=== PATIENT | female | born 1985 | race African-American/Black ===

== ENCOUNTER 2018-02-08 07:23 | Emergency (ER) | payer OTHER, MEDICAID ==
[~2018-02-08] VITALS: Ht 160 cm; Wt 60.0 kg
[~2018-02-08 07:23] MED LIST: CARB200T PO; RISP0.5T19 PO
[2018-02-08] MEDS ORDERED: LIDOCAINE HCL 1% 20ML VIAL (Pyxis) INJ INFIL ONE (08:30)
[2018-02-08] MEDS ORDERED: LIDOCAINE HCL/PF 1% 10 MG/ML 5ML VIAL INL NR (08:30)
[2018-02-08] MEDS ORDERED: TETANUS, DIPHTHERIA, PERTUSSIS VAC/PF 0.5ML (>7YR OLD) IM ONE (08:30)
[2018-02-08 10:30] VITALS: BP 99/65
== END 2018-02-08 10:45 | disposition home or self-care (01) ==
LOC: ER 07:23
DX: S01.01XA Laceration without foreign body of scalp, initial encounter (principal); J45.909 Unspecified asthma, uncomplicated; G80.9 Cerebral palsy, unspecified; W19.XXXA Unspecified fall, initial encounter; Y93.89 Activity, other specified; Y92.89 Other specified places as the place of occurrence of the external cause; Y99.8 Other external cause status
CPT/HCPCS: 12004; 90471; 90715; 99283; X7700; Z7610; J3490

== ENCOUNTER 2018-02-15 14:45 | Emergency (ER) | payer OTHER, MEDICAID ==
[~2018-02-15] VITALS: Ht 152.4 cm; Wt 59.0 kg
[2018-02-15] MEDS ORDERED: LEVETIRACETAM 500MG PREMIX 100 ML IV ONE (15:45)
[2018-02-15] MEDS ORDERED: LORAZEPAM 2MG/ML CPJ IV ONE (15:45)
[2018-02-15 16:09] LABS: BASOPHILS % 0.3 % (0.0-2.0); EOSINOPHILS % 0.6 % (0.0-5.0); HEMATOCRIT. 33.3 % (36.0-48.0); LYMPHOCYTES % 41.2 % (20.0-50.0); MEAN CORPUSCULAR HEMOGLOBIN 29.4 pg (28.0-32.0); MEAN CORPUSCULAR VOLUME 89.3 fL (81.0-99.0); MEAN PLATELET VOLUME 7.9 fl (7.4-10.4); MONOCYTES % 8.9 % (2.0-8.0); PLATELET 220 x1000/uL (130-400); RED BLOOD CELL COUNT 3.73 mill/uL (4.2-5.4); RED CELL DISTRIBUTION WIDTH 13.7 % (11.6-14.6)
[2018-02-15 16:12] LABS: CHLORIDE 113 mEq/L (98-107)
[2018-02-15 16:16] LABS: ETHANOL BLOOD < 10 mg/dL
[2018-02-15 16:21] LABS: CREATINE KINASE 58 IU/L (26-192)
[2018-02-15 16:28] LABS: PHENOBARBITAL < 2.1 ug/mL (15.0-40.0)
[2018-02-15 18:23] VITALS: BP 108/61
== END 2018-02-15 18:53 | disposition home or self-care (01) ==
LOC: ER 15:58
DX: S01.01XD Laceration without foreign body of scalp, subsequent encounter (principal); X58.XXXD Exposure to other specified factors, subsequent encounter; G40.909 Epilepsy, unspecified, not intractable, without status epilepticus; J45.909 Unspecified asthma, uncomplicated; E86.0 Dehydration; G80.9 Cerebral palsy, unspecified
CPT/HCPCS: 36415; 80053; 80156; 80165; 80184; 80185; 82550; 84443; 85025; 96365; 96375; 99284; G0482; J1953; J2060

== ENCOUNTER 2018-02-20 13:26 | Emergency (ER) | payer OTHER, MEDICAID ==
[~2018-02-20] VITALS: Ht 154.9 cm; Wt 56.0 kg
[2018-02-20 14:19] VITALS: BP 114/87
== END 2018-02-20 14:46 | disposition home or self-care (01) ==
LOC: ER 14:43
DX: Z48.02 Encounter for removal of sutures (principal)
CPT/HCPCS: 99281

== ENCOUNTER 2022-02-28 18:35 | Inpatient (IN) | payer OTHER, MEDICAID ==
[~2022-02-28] VITALS: Ht 154.9 cm; Wt 54.9 kg
[~2022-02-28 18:35] MED LIST changes: -RISP0.5T19 PO; +RISP0.5T65 PO
[2022-02-28] MEDS ORDERED: ACETAMINOPHEN 325MG TABLET PO STA (18:54)
[2022-02-28] MEDS ORDERED: CEFTRIAXONE 1 G PREMIX 50 ML IV ONE (19:00)
[2022-02-28] MEDS ORDERED: SODIUM CHLORIDE 0.9% 1000ML BAG (SEPSIS BOLUS) IV ONE (19:00)
[2022-02-28 19:50] LABS: BASOPHILS % 0.1 % (0.0-2.0); HEMATOCRIT. 33.3 % (36.0-48.0); HEMOGLOBIN. 11.5 g/dL (12.0-16.0); LYMPHOCYTES % 16.4 % (20.0-50.0); MEAN CORPUSCULAR HEMOGLOBIN 30.2 pg (28.0-32.0); MEAN CORPUSCULAR VOLUME 87.4 fL (81.0-99.0); MEAN PLATELET VOLUME 8.2 fl (7.4-10.4); MONOCYTES % 6.9 % (2.0-8.0); NEUTROPHILS % 76.6 % (40.0-76.0); PLATELET 147 x1000/uL (130-400); RED BLOOD CELL COUNT 3.81 mill/uL (4.2-5.4)
[2022-02-28 19:53] LABS: CHLORIDE 112 mEq/L (98-107)
[2022-02-28] MEDS ORDERED: ACETAMINOPHEN 325MG TABLET PO NR (20:00)
[2022-02-28 20:12] LABS: HCG SCREEN NEGATIVE
[2022-02-28 22:04] LABS: INR 1.2; PROTHROMBIN TIME 12.6 sec (9.6-11.0)
[2022-02-28 22:49] LABS: CLARITY URINE CLEAR (CLEAR); COLOR URINE YELLOW (YELLOW); KETONES URINE 3+ (NEGATIVE); LEUKOCYTE ESTERASE URINE NEGATIVE (NEGATIVE); NITRITE URINE NEGATIVE (NEGATIVE); OCCULT BLOOD URINE NEGATIVE (NEGATIVE); PROTEIN URINE 2+ (NEGATIVE); SPECIFIC GRAVITY URINE 1.028 (1.005-1.030); UROBILINOGEN URINE 0.2 E.U./dL (0.2-1.0)
[2022-02-28] MEDS ORDERED: DIVALPROEX SODIUM 250MG ER TABLET PO SCH ×2 (23:15→23:45)
[2022-02-28] MEDS ORDERED: CARBAMAZEPINE 200MG TABLET PO ONE (23:15)
[2022-03-01 00:29] VITALS: BP 124/62
[2022-03-01] MEDS ORDERED: POTASSIUM CHLORIDE 20MEQ TABLET SR PO ONE (01:15)
[2022-03-01 04:00] VITALS: BP 119/59
[2022-03-01] MEDS ORDERED: DEPSPR MT (04:01)
[2022-03-01] MEDS ORDERED: DOCUSATE SODIUM 100MG CAPSULE PO PRN (05:00)
[2022-03-01] MEDS ORDERED: NA PHOS,M-B/NA PHOS,DI-BA ENEMA 118ML PR PRN (05:00)
[2022-03-01] MEDS ORDERED: CLONIDINE 0.1MG TABLET PO PRN (05:00)
[2022-03-01] MEDS ORDERED: ACETAMINOPHEN 325MG TABLET PO PRN (05:00)
[2022-03-01] MEDS: DEXAMETHASONE 4MG/ML 1ML VIAL IV SCH ×2 (05:37→11:30)
[2022-03-01 06:51] LABS: BASOPHILS % 0.2 % (0.0-2.0); HEMATOCRIT. 32.9 % (36.0-48.0); HEMOGLOBIN. 11.1 g/dL (12.0-16.0); LYMPHOCYTES % 16.7 % (20.0-50.0); MEAN CORPUSCULAR HEMOGLOBIN 29.6 pg (28.0-32.0); MEAN CORPUSCULAR VOLUME 87.7 fL (81.0-99.0); MEAN PLATELET VOLUME 8.2 fl (7.4-10.4); MONOCYTES % 6.8 % (2.0-8.0); NEUTROPHILS % 76.3 % (40.0-76.0); PLATELET 120 x1000/uL (130-400); RED BLOOD CELL COUNT 3.75 mill/uL (4.2-5.4); RED CELL DISTRIBUTION WIDTH 13.1 % (11.6-14.6)
[2022-03-01 07:09] LABS: CHLORIDE 112 mEq/L (98-107)
[2022-03-01 08:00] VITALS: BP 125/67
[2022-03-01] MEDS ORDERED: DIVALPROEX SODIUM 250MG ER TABLET PO SCH (09:00)
[2022-03-01] MEDS ORDERED: POTASSIUM CHLORIDE 20MEQ TABLET SR PO NR (10:15)
[2022-03-01] MEDS: CARBAMAZEPINE 200MG TABLET PO SCH ×2 (10:26→10:28)
[2022-03-01] MEDS: RISPERIDONE 0.5MG TABLET PO SCH ×2 (10:27→17:30)
[2022-03-01] MEDS: ENOXAPARIN 40MG/0.4ML SYR SUBCUT SCH (10:28)
[2022-03-01 11:18] LABS: BG BASE EXCESS -2.6 mmol/L (-2.0-2.0); BG CARBOXYHEMOGLOBIN 0.3 % (0.5-1.5); BG DEOXYHEMOGLOBIN 4.4 % (0.0-5.0); BG HCO3 ACT 21.3 mmol/L (22.0-26.0); BG METHEMOGLOBIN 0.1 % (0.0-1.5); BG OXYGEN SATURATION 95.6 % (92.0-98.5); BG OXYHEMOGLOBIN 95.2 % (94.0-97.0); BG PCO2 33.7 mmHg (35.0-45.0); BG PH 7.418 (7.350-7.450); BG PO2 78.4 mmHg (75.0-100.0); BG SAMPLE SITE RIGHT RADIAL; BG TOTAL HEMOGLOBIN 11.1 g/dL (12.0-18.0); BG VENT MODE ROOM AIR
[2022-03-01] MEDS: DIVALPROEX SODIUM 125MG DR TABLET PO SCH ×2 (11:38→21:28)
[2022-03-01 12:00] VITALS: BP 116/67
[2022-03-01] MEDS ORDERED: BISACODYL 10MG SUPP PR PRN (13:00)
[2022-03-01] MEDS ORDERED: ACETAMINOPHEN 650MG SUPP PR PRN (13:00)
[2022-03-01] MEDS ORDERED: HYDROCODONE/ACETAMINOPHEN 5/325MG TABLET PO PRN (13:00)
[2022-03-01] MEDS ORDERED: NALOXONE HCL 0.4MG/ML VIAL IV PRN (13:15)
[2022-03-01 16:00] VITALS: BP 125/77
[2022-03-01] MEDS: AZITHROMYCIN 500 MG in DEXT 5% WATER 250 ML IV SCH (16:47)
[2022-03-01 20:00] VITALS: BP 119/78
[2022-03-01] MEDS ORDERED: DEXAMETHASONE 10 MG/ML VIAL IV SCH (20:45)
[2022-03-01] MEDS ORDERED: FAMOTIDINE 20MG TABLET PO SCH (21:00)
[2022-03-01] MEDS: CEFTRIAXONE 1,000 MG in DEXTROSE 5% WATER 50 ML IV SCH (21:26)
[2022-03-02] VITALS: BP 127/82
[2022-03-02 04:00] VITALS: BP 115/73
[2022-03-02 08:00] VITALS: BP 120/69
[2022-03-02] MEDS: CARBAMAZEPINE 200MG TABLET PO SCH ×2 (08:14→16:48)
[2022-03-02] MEDS: DEXAMETHASONE 10 MG/ML VIAL IV SCH (08:14)
[2022-03-02] MEDS: RISPERIDONE 0.5MG TABLET PO SCH ×2 (08:14→16:48)
[2022-03-02] MEDS: ENOXAPARIN 40MG/0.4ML SYR SUBCUT SCH (08:15)
[2022-03-02] MEDS: IPRATROPIUM/ALBUTEROL 0.5-3(2.5)MG/3ML NEB HHN SCH ×2 (09:00→13:41)
[2022-03-02 09:42] LABS: BASOPHILS % 0.1 % (0.0-2.0); HEMATOCRIT. 31.2 % (36.0-48.0); HEMOGLOBIN. 10.5 g/dL (12.0-16.0); MEAN CORPUSCULAR VOLUME 86.1 fL (81.0-99.0); MEAN PLATELET VOLUME 8.7 fl (7.4-10.4); MONOCYTES % 5.5 % (2.0-8.0); NEUTROPHILS % 65.4 % (40.0-76.0); PLATELET 149 x1000/uL (130-400); RED BLOOD CELL COUNT 3.62 mill/uL (4.2-5.4); RED CELL DISTRIBUTION WIDTH 13.3 % (11.6-14.6)
[2022-03-02] MEDS ORDERED: POTASSIUM CHLORIDE 20MEQ/PACKET PO SCH (10:00)
[2022-03-02] MEDS ORDERED: VALPROIC ACID 250MG CAPSULE PO SCH (10:00)
[2022-03-02 10:01] LABS: CHLORIDE 108 mEq/L (98-107)
[2022-03-02 12:00] VITALS: BP 119/74
[2022-03-02] MEDS ORDERED: VALPROATE SODIUM 250MG/5ML UDC PO SCH ×2 (14:13→21:00)
[2022-03-02] MEDS: AZITHROMYCIN 500 MG in DEXT 5% WATER 250 ML IV SCH (14:44)
[2022-03-02 16:00] VITALS: BP 115/76
[2022-03-02] MEDS ORDERED: KCL 20MEQ/100ML PREMIX 100 ML IV SCH (16:00)
[2022-03-02] MEDS: DEXT 5%/0.45% NACL KCL 20MEQ/L 1,000 ML IV SCH (16:23)
[2022-03-02 20:00] VITALS: BP 113/63
[2022-03-02] MEDS: CEFTRIAXONE 1,000 MG in DEXTROSE 5% WATER 50 ML IV SCH (20:33)
[2022-03-02] MEDS: VALPROATE SODIUM IV SCH (23:01)
[2022-03-02] MEDS: SODIUM CHLORIDE 0.9% IV SCH (23:01)
[2022-03-03] VITALS: BP 122/77
[2022-03-03] MEDS: LORAZEPAM 2MG/ML CPJ IV PRN ×3 (03:18→20:22)
[2022-03-03 04:00] VITALS: BP 125/56
[2022-03-03 08:00] VITALS: BP_SYST 125; BP_DIAS 27; BP_DIAS 57
[2022-03-03] MEDS: DEXT 5%/0.45% NACL KCL 20MEQ/L 1,000 ML IV SCH (08:12)
[2022-03-03] MEDS: ENOXAPARIN 40MG/0.4ML SYR SUBCUT SCH (08:12)
[2022-03-03] MEDS: DEXAMETHASONE 10 MG/ML VIAL IV SCH (08:13)
[2022-03-03] MEDS: FAMOTIDINE 20MG/2ML VIAL IV SCH ×2 (08:13→20:21)
[2022-03-03] MEDS: RISPERIDONE 0.5MG TABLET PO SCH ×2 (08:29→17:00)
[2022-03-03] MEDS: CARBAMAZEPINE 200MG TABLET PO SCH ×2 (08:29→17:00)
[2022-03-03 08:36] LABS: HEMATOCRIT. 29.2 % (36.0-48.0); MEAN CORPUSCULAR HEMOGLOBIN 29.5 pg (28.0-32.0); MEAN PLATELET VOLUME 8.4 fl (7.4-10.4); PLATELET 137 x1000/uL (130-400); RED CELL DISTRIBUTION WIDTH 12.8 % (11.6-14.6)
[2022-03-03] MEDS ORDERED: AZITHROMYCIN 500 MG TABLET PO SCH (09:00)
[2022-03-03 09:17] LABS: CHLORIDE 109 mEq/L (98-107)
[2022-03-03 09:18] LABS: NUCLEATED RED BLOOD CELLS 1 /100 WBC
[2022-03-03 09:23] LABS: PLATELET ESTIMATE NORMAL
[2022-03-03] MEDS ORDERED: IOHEXOL-300 100 ML BOTTLE ONE (11:23)
[2022-03-03 12:00] VITALS: BP_SYST 129; BP_SYST 130; BP_DIAS 51; BP_DIAS 92
[2022-03-03] MEDS ORDERED: KCL 20MEQ/100ML PREMIX 100 ML IV SCH (13:00)
[2022-03-03] MEDS: VALPROATE SODIUM IV SCH (15:52)
[2022-03-03] MEDS: SODIUM CHLORIDE 0.9% IV SCH (15:52)
[2022-03-03 16:00] VITALS: BP 112/72
[2022-03-03] MEDS: AZITHROMYCIN 500 MG in DEXT 5% WATER 250 ML IV SCH (17:43)
[2022-03-03 19:54] LABS: HEMATOCRIT. 31.6 % (36.0-48.0); HEMOGLOBIN. 10.5 g/dL (12.0-16.0); MEAN CORPUSCULAR HEMOGLOBIN 29.1 pg (28.0-32.0); MEAN CORPUSCULAR VOLUME 87.7 fL (81.0-99.0); MEAN PLATELET VOLUME 7.7 fl (7.4-10.4); PLATELET 165 x1000/uL (130-400); RED BLOOD CELL COUNT 3.61 mill/uL (4.2-5.4); RED CELL DISTRIBUTION WIDTH 13.1 % (11.6-14.6)
[2022-03-03 20:00] VITALS: BP 116/56
[2022-03-03] MEDS: CEFTRIAXONE 1,000 MG in DEXTROSE 5% WATER 50 ML IV SCH (20:21)
[2022-03-03 21:04] LABS: PLATELET ESTIMATE NORMAL
[2022-03-04] VITALS (9 sets, daily range): BP systolic 96–121; BP diastolic 43–70
[2022-03-04] MEDS: VALPROATE SODIUM IV SCH ×2 (02:10→14:49)
[2022-03-04] MEDS: SODIUM CHLORIDE 0.9% IV SCH ×2 (02:10→14:49)
[2022-03-04] MEDS: DEXT 5%/0.45% NACL KCL 20MEQ/L 1,000 ML IV SCH ×2 (06:39→17:46)
[2022-03-04] MEDS ORDERED: DEXAMETHASONE 4MG/ML 1ML VIAL IV SCH (09:00)
[2022-03-04 09:05] LABS: BASOPHILS % 0.2 % (0.0-2.0); EOSINOPHILS % 0.1 % (0.0-5.0); HEMATOCRIT. 31.3 % (36.0-48.0); HEMOGLOBIN. 10.5 g/dL (12.0-16.0); LYMPHOCYTES % 26.8 % (20.0-50.0); MEAN CORPUSCULAR HEMOGLOBIN 28.9 pg (28.0-32.0); MEAN CORPUSCULAR VOLUME 86.5 fL (81.0-99.0); MEAN PLATELET VOLUME 7.9 fl (7.4-10.4); MONOCYTES % 10.1 % (2.0-8.0); NEUTROPHILS % 62.8 % (40.0-76.0); PLATELET 176 x1000/uL (130-400); RED BLOOD CELL COUNT 3.62 mill/uL (4.2-5.4)
[2022-03-04 09:39] LABS: CHLORIDE 107 mEq/L (98-107)
[2022-03-04] MEDS: ENOXAPARIN 40MG/0.4ML SYR SUBCUT SCH (09:48)
[2022-03-04] MEDS: RISPERIDONE 0.5MG TABLET PO SCH ×2 (09:48→16:12)
[2022-03-04] MEDS: FAMOTIDINE 20MG/2ML VIAL IV SCH ×2 (09:48→23:56)
[2022-03-04] MEDS: CARBAMAZEPINE 200MG TABLET PO SCH ×2 (09:48→16:12)
[2022-03-04] MEDS: AZITHROMYCIN 500 MG in DEXT 5% WATER 250 ML IV SCH (16:12)
[2022-03-04] MEDS: CEFTRIAXONE 1,000 MG in DEXTROSE 5% WATER 50 ML IV SCH (23:56)
[2022-03-05] VITALS: BP 106/69
[2022-03-05] MEDS: SODIUM CHLORIDE 0.9% IV SCH ×2 (01:13→14:42)
[2022-03-05] MEDS: VALPROATE SODIUM IV SCH ×2 (01:13→14:42)
[2022-03-05 04:00] VITALS: BP 104/70
[2022-03-05] MEDS: FAMOTIDINE 20MG/2ML VIAL IV SCH ×2 (10:17→20:54)
[2022-03-05] MEDS: ENOXAPARIN 40MG/0.4ML SYR SUBCUT SCH (10:17)
[2022-03-05] MEDS: CARBAMAZEPINE 200MG TABLET PO SCH ×2 (10:17→16:34)
[2022-03-05] MEDS: RISPERIDONE 0.5MG TABLET PO SCH ×2 (10:17→16:33)
[2022-03-05] MEDS: DEXT 5%/0.45% NACL KCL 20MEQ/L 1,000 ML IV SCH (10:40)
[2022-03-05 10:41] LABS: BASOPHILS % 0.2 % (0.0-2.0); EOSINOPHILS % 0.3 % (0.0-5.0); HEMATOCRIT. 30.2 % (36.0-48.0); HEMOGLOBIN. 10.3 g/dL (12.0-16.0); LYMPHOCYTES % 24.2 % (20.0-50.0); MEAN CORPUSCULAR HEMOGLOBIN 29.4 pg (28.0-32.0); MEAN CORPUSCULAR VOLUME 85.9 fL (81.0-99.0); MEAN PLATELET VOLUME 8.1 fl (7.4-10.4); MONOCYTES % 9.7 % (2.0-8.0); NEUTROPHILS % 65.6 % (40.0-76.0); PLATELET 185 x1000/uL (130-400); RED BLOOD CELL COUNT 3.52 mill/uL (4.2-5.4); RED CELL DISTRIBUTION WIDTH 13.3 % (11.6-14.6)
[2022-03-05 10:47] LABS: CHLORIDE 111 mEq/L (98-107)
[2022-03-05 11:40] VITALS: BP 107/61
[2022-03-05] MEDS: AZITHROMYCIN 500 MG in DEXT 5% WATER 250 ML IV SCH (14:43)
[2022-03-05 15:54] LABS: BG BASE EXCESS -2.4 mmol/L (-2.0-2.0); BG CARBOXYHEMOGLOBIN 0.3 % (0.5-1.5); BG DEOXYHEMOGLOBIN 5.4 % (0.0-5.0); BG FRACTION INSPIRED OXYGEN 28; BG HCO3 ACT 21.3 mmol/L (22.0-26.0); BG METHEMOGLOBIN 0.3 % (0.0-1.5); BG OXYGEN SATURATION 94.6 % (92.0-98.5); BG PCO2 32.8 mmHg (35.0-45.0); BG PH 7.431 (7.350-7.450); BG PO2 73.8 mmHg (75.0-100.0); BG SAMPLE SITE RIGHT RADIAL; BG TOTAL HEMOGLOBIN 10.6 g/dL (12.0-18.0); BG VENT MODE NASAL CANNULA
[2022-03-05 16:00] VITALS: BP 106/57
[2022-03-05 20:00] VITALS: BP 108/60
[2022-03-05] MEDS: CEFTRIAXONE 1,000 MG in DEXTROSE 5% WATER 50 ML IV SCH (20:54)
[2022-03-05] MEDS ORDERED: ONDANSETRON HCL 4MG/2ML INJ IV PRN (23:15)
[2022-03-05] MEDS: ALBUTEROL 6.7GM HFA INHALER ORI PRN (23:27)
[2022-03-06] VITALS: BP 138/67
[2022-03-06] MEDS: SODIUM CHLORIDE 0.9% IV SCH ×2 (01:52→14:45)
[2022-03-06] MEDS: METOCLOPRAMIDE HCL 10MG/2ML VIAL IV SCH ×4 (01:52→17:08)
[2022-03-06] MEDS: VALPROATE SODIUM IV SCH ×2 (01:52→14:45)
[2022-03-06] MEDS: DEXT 5%/0.45% NACL KCL 20MEQ/L 1,000 ML IV SCH ×2 (01:52→20:55)
[2022-03-06] MEDS: ACETAMINOPHEN 325MG TABLET PO PRN ×2 (02:46→09:30)
[2022-03-06 04:00] VITALS: BP 108/64
[2022-03-06 07:55] LABS: BASOPHILS % 0.1 % (0.0-2.0); EOSINOPHILS % 0.2 % (0.0-5.0); HEMATOCRIT. 28.7 % (36.0-48.0); HEMOGLOBIN. 9.8 g/dL (12.0-16.0); LYMPHOCYTES % 15.9 % (20.0-50.0); MEAN CORPUSCULAR HEMOGLOBIN 29.4 pg (28.0-32.0); MEAN CORPUSCULAR VOLUME 85.9 fL (81.0-99.0); MEAN PLATELET VOLUME 7.8 fl (7.4-10.4); MONOCYTES % 11.6 % (2.0-8.0); NEUTROPHILS % 72.2 % (40.0-76.0); PLATELET 226 x1000/uL (130-400); RED BLOOD CELL COUNT 3.34 mill/uL (4.2-5.4); RED CELL DISTRIBUTION WIDTH 13.4 % (11.6-14.6)
[2022-03-06 08:00] VITALS: BP 102/51
[2022-03-06 08:17] LABS: CHLORIDE 109 mEq/L (98-107)
[2022-03-06] MEDS: ENOXAPARIN 40MG/0.4ML SYR SUBCUT SCH (09:08)
[2022-03-06] MEDS: FAMOTIDINE 20MG/2ML VIAL IV SCH ×2 (09:09→20:55)
[2022-03-06] MEDS: RISPERIDONE 0.5MG TABLET PO SCH ×2 (09:09→17:08)
[2022-03-06] MEDS: CARBAMAZEPINE 200MG/10ML UDC GT SCH ×2 (09:25→17:07)
[2022-03-06 12:00] VITALS: BP 101/54
[2022-03-06] MEDS: PIPERACILLIN/TAZOBACTAM 3.375 G in DEXTROSE 5% WATER 50 ML IV SCH ×2 (14:45→20:55)
[2022-03-06] MEDS: ALBUTEROL 6.7GM HFA INHALER ORI PRN (14:46)
[2022-03-06 15:24] LABS: BG BASE EXCESS -1.1 mmol/L (-2.0-2.0); BG CARBOXYHEMOGLOBIN 0.3 % (0.5-1.5); BG DEOXYHEMOGLOBIN 4.3 % (0.0-5.0); BG FRACTION INSPIRED OXYGEN 36; BG HCO3 ACT 22.7 mmol/L (22.0-26.0); BG METHEMOGLOBIN 0.3 % (0.0-1.5); BG OXYGEN SATURATION 95.7 % (92.0-98.5); BG OXYHEMOGLOBIN 95.1 % (94.0-97.0); BG PCO2 34.2 mmHg (35.0-45.0); BG PH 7.439 (7.350-7.450); BG PO2 77.3 mmHg (75.0-100.0); BG SAMPLE SITE RIGHT RADIAL; BG TOTAL HEMOGLOBIN 10.7 g/dL (12.0-18.0); BG VENT MODE NASAL CANNULA
[2022-03-06 16:00] VITALS: BP 109/46
[2022-03-06 18:16] LABS: BG BASE EXCESS -0.5 mmol/L (-2.0-2.0); BG CARBOXYHEMOGLOBIN 0.3 % (0.5-1.5); BG DEOXYHEMOGLOBIN 0.7 % (0.0-5.0); BG FRACTION INSPIRED OXYGEN 21; BG HCO3 ACT 23.5 mmol/L (22.0-26.0); BG METHEMOGLOBIN 0.3 % (0.0-1.5); BG OXYGEN SATURATION 99.3 % (92.0-98.5); BG OXYHEMOGLOBIN 98.7 % (94.0-97.0); BG PCO2 36.2 mmHg (35.0-45.0); BG PH 7.431 (7.350-7.450); BG PO2 210.6 mmHg (75.0-100.0); BG SAMPLE SITE RIGHT RADIAL; BG TOTAL HEMOGLOBIN 10.8 g/dL (12.0-18.0); BG VENT MODE ROOM AIR
[2022-03-07] VITALS (78 sets, daily range): BP systolic 73–160; BP diastolic 37–100
[2022-03-07] MEDS: METOCLOPRAMIDE HCL 10MG/2ML VIAL IV SCH ×4 (00:22→17:19)
[2022-03-07] MEDS: VALPROATE SODIUM IV SCH ×2 (02:18→13:54)
[2022-03-07] MEDS: SODIUM CHLORIDE 0.9% IV SCH ×2 (02:18→13:54)
[2022-03-07 03:55] LABS: CLARITY URINE CLEAR (CLEAR); COLOR URINE YELLOW (YELLOW); KETONES URINE NEGATIVE (NEGATIVE); LEUKOCYTE ESTERASE URINE NEGATIVE (NEGATIVE); NITRITE URINE NEGATIVE (NEGATIVE); OCCULT BLOOD URINE NEGATIVE (NEGATIVE); PH URINE 6.5 (4.5-8.0); PROTEIN URINE NEGATIVE (NEGATIVE); SPECIFIC GRAVITY URINE 1.021 (1.005-1.030); UROBILINOGEN URINE 0.2 E.U./dL (0.2-1.0)
[2022-03-07 04:21] LABS: CHLORIDE 107 mEq/L (98-107)
[2022-03-07 05:02] LABS: BASOPHILS % 0.1 % (0.0-2.0); HEMATOCRIT. 30.2 % (36.0-48.0); LYMPHOCYTES % 11.4 % (20.0-50.0); MEAN CORPUSCULAR HEMOGLOBIN 29.2 pg (28.0-32.0); MEAN CORPUSCULAR VOLUME 88.4 fL (81.0-99.0); MEAN PLATELET VOLUME 7.9 fl (7.4-10.4); MONOCYTES % 11.7 % (2.0-8.0); NEUTROPHILS % 76.8 % (40.0-76.0); PLATELET 290 x1000/uL (130-400); RED BLOOD CELL COUNT 3.42 mill/uL (4.2-5.4); RED CELL DISTRIBUTION WIDTH 13.1 % (11.6-14.6)
[2022-03-07] MEDS: PIPERACILLIN/TAZOBACTAM 3.375 G in DEXTROSE 5% WATER 50 ML IV SCH ×3 (05:34→21:04)
[2022-03-07] MEDS: ENOXAPARIN 40MG/0.4ML SYR SUBCUT SCH (08:02)
[2022-03-07] MEDS: FAMOTIDINE 20MG/2ML VIAL IV SCH ×2 (08:02→21:04)
[2022-03-07] MEDS: ACETAMINOPHEN 325MG TABLET PO PRN ×2 (08:03→17:19)
[2022-03-07 08:35] LABS: BG BASE EXCESS -1.1 mmol/L (-2.0-2.0); BG CARBOXYHEMOGLOBIN 0.3 % (0.5-1.5); BG DEOXYHEMOGLOBIN 1.8 % (0.0-5.0); BG FRACTION INSPIRED OXYGEN 100; BG METHEMOGLOBIN 0.2 % (0.0-1.5); BG OXYGEN SATURATION 98.2 % (92.0-98.5); BG OXYHEMOGLOBIN 97.7 % (94.0-97.0); BG PCO2 36.2 mmHg (35.0-45.0); BG PH 7.421 (7.350-7.450); BG PO2 108.7 mmHg (75.0-100.0); BG SAMPLE SITE RIGHT RADIAL; BG TOTAL HEMOGLOBIN 11.1 g/dL (12.0-18.0); BG VENT MODE MASK - NRB
[2022-03-07] MEDS: CARBAMAZEPINE 200MG/10ML UDC GT SCH ×2 (09:43→17:18)
[2022-03-07] MEDS: RISPERIDONE 0.5MG TABLET PO SCH ×2 (09:43→17:18)
[2022-03-07] MEDS: DEXT 5%/0.45% NACL KCL 20MEQ/L 1,000 ML IV SCH (11:40)
[2022-03-07] MEDS ORDERED: IPRATROPIUM/ALBUTEROL 0.5-3(2.5)MG/3ML NEB HHN NR (12:30)
[2022-03-07] MEDS: DEXAMETHASONE 10 MG/ML VIAL IV SCH (13:15)
[2022-03-07] MEDS: IPRATROPIUM/ALBUTEROL 0.5-3(2.5)MG/3ML NEB HHN SCH ×2 (14:50→20:17)
[2022-03-07 15:08] LABS: BG CARBOXYHEMOGLOBIN 0.3 % (0.5-1.5); BG DEOXYHEMOGLOBIN 2.1 % (0.0-5.0); BG FRACTION INSPIRED OXYGEN 100; BG HCO3 ACT 22.2 mmol/L (22.0-26.0); BG METHEMOGLOBIN 0.3 % (0.0-1.5); BG OXYGEN SATURATION 97.9 % (92.0-98.5); BG OXYHEMOGLOBIN 97.3 % (94.0-97.0); BG PH 7.459 (7.350-7.450); BG PO2 107.7 mmHg (75.0-100.0); BG SAMPLE SITE RIGHT RADIAL; BG TOTAL HEMOGLOBIN 11.5 g/dL (12.0-18.0); BG TOTAL RESPIRATORY RATE 44 b/min; BG VENT MODE MASK - BIPAP
[2022-03-07] MEDS ORDERED: SODIUM CHLORIDE 0.9% 1,000 ML IV ONE (21:30)
[2022-03-07 21:35] LABS: BG BASE EXCESS -2.7 mmol/L (-2.0-2.0); BG CARBOXYHEMOGLOBIN 0.2 % (0.5-1.5); BG DEOXYHEMOGLOBIN 1.5 % (0.0-5.0); BG FRACTION INSPIRED OXYGEN 100; BG HCO3 ACT 19.8 mmol/L (22.0-26.0); BG OXYGEN SATURATION 98.5 % (92.0-98.5); BG OXYHEMOGLOBIN 98.3 % (94.0-97.0); BG PCO2 27.5 mmHg (35.0-45.0); BG PH 7.476 (7.350-7.450); BG PO2 129.4 mmHg (75.0-100.0); BG TOTAL HEMOGLOBIN 11.1 g/dL (12.0-18.0); BG VENT MODE MASK - CPAP
[2022-03-08] VITALS (60 sets, daily range): BP systolic 95–146; BP diastolic 38–95
[2022-03-08] MEDS ORDERED: SODIUM CHLORIDE 0.9% 1,000 ML IV ONE
[2022-03-08] MEDS: METOCLOPRAMIDE HCL 10MG/2ML VIAL IV SCH ×4 (00:07→18:23)
[2022-03-08] MEDS: SODIUM CHLORIDE 0.9% IV SCH ×2 (03:34→13:50)
[2022-03-08] MEDS: VALPROATE SODIUM IV SCH ×2 (03:34→13:50)
[2022-03-08 04:43] LABS: BASOPHILS % 0.1 % (0.0-2.0); HEMATOCRIT. 29.5 % (36.0-48.0); HEMOGLOBIN. 9.9 g/dL (12.0-16.0); LYMPHOCYTES % 9.1 % (20.0-50.0); MEAN CORPUSCULAR HEMOGLOBIN 29.2 pg (28.0-32.0); MEAN CORPUSCULAR VOLUME 86.7 fL (81.0-99.0); MEAN PLATELET VOLUME 7.5 fl (7.4-10.4); MONOCYTES % 5.5 % (2.0-8.0); NEUTROPHILS % 85.3 % (40.0-76.0); PLATELET 312 x1000/uL (130-400); RED CELL DISTRIBUTION WIDTH 12.7 % (11.6-14.6)
[2022-03-08 04:47] LABS: CHLORIDE 108 mEq/L (98-107)
[2022-03-08] MEDS: PIPERACILLIN/TAZOBACTAM 3.375 G in DEXTROSE 5% WATER 50 ML IV SCH ×3 (05:56→22:52)
[2022-03-08] MEDS: DEXT 5%/0.45% NACL KCL 20MEQ/L 1,000 ML IV SCH ×2 (05:56→22:00)
[2022-03-08] MEDS: IPRATROPIUM/ALBUTEROL 0.5-3(2.5)MG/3ML NEB HHN SCH ×3 (06:00→18:00)
[2022-03-08] MEDS: DEXAMETHASONE 10 MG/ML VIAL IV SCH (08:36)
[2022-03-08] MEDS: FAMOTIDINE 20MG/2ML VIAL IV SCH ×2 (08:36→21:04)
[2022-03-08] MEDS: RISPERIDONE 0.5MG TABLET PO SCH ×2 (08:36→18:23)
[2022-03-08] MEDS: CARBAMAZEPINE 200MG/10ML UDC GT SCH ×2 (08:36→18:22)
[2022-03-08] MEDS: ENOXAPARIN 40MG/0.4ML SYR SUBCUT SCH (08:37)
[2022-03-08 09:28] LABS: BG BASE EXCESS -2.9 mmol/L (-2.0-2.0); BG CARBOXYHEMOGLOBIN 0.3 % (0.5-1.5); BG DEOXYHEMOGLOBIN 0.6 % (0.0-5.0); BG FRACTION INSPIRED OXYGEN 100; BG HCO3 ACT 20.4 mmol/L (22.0-26.0); BG METHEMOGLOBIN 0.2 % (0.0-1.5); BG OXYGEN SATURATION 99.4 % (92.0-98.5); BG OXYHEMOGLOBIN 98.9 % (94.0-97.0); BG PCO2 30.5 mmHg (35.0-45.0); BG PH 7.443 (7.350-7.450); BG PO2 165.1 mmHg (75.0-100.0); BG SAMPLE SITE RIGHT RADIAL; BG TOTAL HEMOGLOBIN 10.4 g/dL (12.0-18.0); BG VENT MODE MASK - BIPAP
[2022-03-08] MEDS ORDERED: LIDOCAINE HCL/PF 1% 10 MG/ML 5ML VIAL ONE (14:16)
[2022-03-09] VITALS (49 sets, daily range): BP systolic 105–141; BP diastolic 49–95
[2022-03-09] MEDS: DEXT 5%/0.45% NACL KCL 20MEQ/L 1,000 ML IV SCH ×2 (00:15→16:48)
[2022-03-09] MEDS: METOCLOPRAMIDE HCL 10MG/2ML VIAL IV SCH ×4 (00:15→17:05)
[2022-03-09] MEDS: VALPROATE SODIUM IV SCH ×2 (02:28→13:30)
[2022-03-09] MEDS: SODIUM CHLORIDE 0.9% IV SCH ×2 (02:28→13:30)
[2022-03-09 05:00] LABS: EOSINOPHILS % 0.1 % (0.0-5.0); HEMATOCRIT. 26.3 % (36.0-48.0); HEMOGLOBIN. 9.1 g/dL (12.0-16.0); LYMPHOCYTES % 9.2 % (20.0-50.0); MEAN CORPUSCULAR HEMOGLOBIN 29.2 pg (28.0-32.0); MEAN CORPUSCULAR VOLUME 84.2 fL (81.0-99.0); MEAN PLATELET VOLUME 7.4 fl (7.4-10.4); MONOCYTES % 6.3 % (2.0-8.0); NEUTROPHILS % 84.4 % (40.0-76.0); PLATELET 315 x1000/uL (130-400); RED BLOOD CELL COUNT 3.12 mill/uL (4.2-5.4); RED CELL DISTRIBUTION WIDTH 12.9 % (11.6-14.6)
[2022-03-09 05:08] LABS: CHLORIDE 108 mEq/L (98-107)
[2022-03-09] MEDS: PIPERACILLIN/TAZOBACTAM 3.375 G in DEXTROSE 5% WATER 50 ML IV SCH ×3 (06:29→21:54)
[2022-03-09] MEDS: ACETAMINOPHEN 325MG TABLET PO PRN (07:54)
[2022-03-09] MEDS: FAMOTIDINE 20MG/2ML VIAL IV SCH ×2 (08:52→21:54)
[2022-03-09] MEDS: RISPERIDONE 0.5MG TABLET PO SCH ×2 (08:52→17:05)
[2022-03-09] MEDS: ENOXAPARIN 40MG/0.4ML SYR SUBCUT SCH (08:52)
[2022-03-09] MEDS: DEXAMETHASONE 10 MG/ML VIAL IV SCH (08:52)
[2022-03-09] MEDS: CARBAMAZEPINE 200MG/10ML UDC GT SCH ×2 (09:00→17:06)
[2022-03-09] MEDS: IPRATROPIUM/ALBUTEROL 0.5-3(2.5)MG/3ML NEB HHN SCH ×3 (09:05→20:27)
[2022-03-09 11:29] LABS: BG BASE EXCESS -2.5 mmol/L (-2.0-2.0); BG CARBOXYHEMOGLOBIN 0.3 % (0.5-1.5); BG DEOXYHEMOGLOBIN 3.7 % (0.0-5.0); BG FRACTION INSPIRED OXYGEN 50; BG HCO3 ACT 20.4 mmol/L (22.0-26.0); BG METHEMOGLOBIN 0.2 % (0.0-1.5); BG OXYGEN SATURATION 96.3 % (92.0-98.5); BG OXYHEMOGLOBIN 95.8 % (94.0-97.0); BG PCO2 28.7 mmHg (35.0-45.0); BG PO2 78.3 mmHg (75.0-100.0); BG SAMPLE SITE RIGHT RADIAL; BG TOTAL HEMOGLOBIN 9.2 g/dL (12.0-18.0); BG VENT MODE MASK - BIPAP
[2022-03-09] MEDS: METHYLPREDNISOLONE SOD SUCC 40 MG/ML VIAL IV SCH ×2 (12:42→21:53)
[2022-03-10] VITALS (52 sets, daily range): BP systolic 104–169; BP diastolic 33–106
[2022-03-10] MEDS: METOCLOPRAMIDE HCL 10MG/2ML VIAL IV SCH ×5 (00:22→23:56)
[2022-03-10] MEDS: IPRATROPIUM/ALBUTEROL 0.5-3(2.5)MG/3ML NEB HHN SCH ×4 (02:28→20:34)
[2022-03-10] MEDS: VALPROATE SODIUM IV SCH ×2 (02:43→13:45)
[2022-03-10] MEDS: SODIUM CHLORIDE 0.9% IV SCH ×2 (02:43→13:45)
[2022-03-10 05:34] LABS: HEMOGLOBIN. 8.6 g/dL (12.0-16.0); MEAN CORPUSCULAR HEMOGLOBIN 29.5 pg (28.0-32.0); MEAN CORPUSCULAR VOLUME 85.5 fL (81.0-99.0); MEAN PLATELET VOLUME 7.3 fl (7.4-10.4); PLATELET 310 x1000/uL (130-400); RED BLOOD CELL COUNT 2.92 mill/uL (4.2-5.4); RED CELL DISTRIBUTION WIDTH 12.8 % (11.6-14.6)
[2022-03-10 05:36] LABS: CHLORIDE 107 mEq/L (98-107)
[2022-03-10] MEDS: PIPERACILLIN/TAZOBACTAM 3.375 G in DEXTROSE 5% WATER 50 ML IV SCH (05:59)
[2022-03-10] MEDS: METHYLPREDNISOLONE SOD SUCC 40 MG/ML VIAL IV SCH ×3 (06:00→21:22)
[2022-03-10 07:11] LABS: PLATELET ESTIMATE NORMAL
[2022-03-10] MEDS: FAMOTIDINE 20MG/2ML VIAL IV SCH ×2 (08:52→21:21)
[2022-03-10] MEDS: RISPERIDONE 0.5MG TABLET PO SCH ×2 (08:52→17:44)
[2022-03-10] MEDS: ENOXAPARIN 40MG/0.4ML SYR SUBCUT SCH (08:52)
[2022-03-10 08:54] LABS: BG BASE EXCESS -3.8 mmol/L (-2.0-2.0); BG CARBOXYHEMOGLOBIN 0.3 % (0.5-1.5); BG DEOXYHEMOGLOBIN 4.2 % (0.0-5.0); BG FRACTION INSPIRED OXYGEN 50; BG HCO3 ACT 18.8 mmol/L (22.0-26.0); BG METHEMOGLOBIN 0.2 % (0.0-1.5); BG OXYGEN SATURATION 95.8 % (92.0-98.5); BG OXYHEMOGLOBIN 95.3 % (94.0-97.0); BG PCO2 26.1 mmHg (35.0-45.0); BG PH 7.476 (7.350-7.450); BG PO2 81.4 mmHg (75.0-100.0); BG SAMPLE SITE RIGHT RADIAL; BG TOTAL HEMOGLOBIN 9.2 g/dL (12.0-18.0); BG TOTAL RESPIRATORY RATE 358 b/min; BG VENT MODE MASK - BIPAP
[2022-03-10] MEDS ORDERED: ETOMIDATE 2MG/ML 10ML VIAL IV ONE (09:09)
[2022-03-10] MEDS ORDERED: VECURONIUM BROMIDE 10 MG/VIAL IV ONE (09:09)
[2022-03-10] MEDS: CARBAMAZEPINE 200MG/10ML UDC GT SCH ×2 (09:55→17:38)
[2022-03-10] MEDS ORDERED: DILTIAZEM HCL 5MG/ML 5ML VIAL IV NR (11:30)
[2022-03-10] MEDS ORDERED: LORAZEPAM 0.5MG TABLET NG NR (11:30)
[2022-03-10] MEDS: DEXT 5%/0.45% NACL 500ML 1,000 ML IV SCH (12:17)
[2022-03-10] MEDS: MEROPENEM 1,000 MG in SODIUM CHLORIDE 0.9% 100 ML IV SCH ×2 (12:24→21:21)
[2022-03-10] MEDS ORDERED: MEROPENEM 1,000 MG in SODIUM CHLORIDE 0.9% 100 ML IV SCH (13:00)
[2022-03-10] MEDS ORDERED: DILTIAZEM HCL 125 MG in DEXT 5% WATER 100 ML IV PRN (21:15)
[2022-03-10] MEDS ORDERED: PHENYLEPHRINE 100 MG in DEXT 5% WATER 240 ML IV PRN (21:45)
[2022-03-10] MEDS: DILTIAZEM 125MG/125ML PMX 100 ML IV PRN (22:23)
[2022-03-10 23:35] LABS: BG BASE EXCESS -3.1 mmol/L (-2.0-2.0); BG CARBOXYHEMOGLOBIN 0.2 % (0.5-1.5); BG DEOXYHEMOGLOBIN 1.1 % (0.0-5.0); BG FRACTION INSPIRED OXYGEN 100; BG HCO3 ACT 20.8 mmol/L (22.0-26.0); BG METHEMOGLOBIN 0.5 % (0.0-1.5); BG OXYGEN SATURATION 98.9 % (92.0-98.5); BG OXYHEMOGLOBIN 98.2 % (94.0-97.0); BG PCO2 33.2 mmHg (35.0-45.0); BG PH 7.415 (7.350-7.450); BG PO2 217.8 mmHg (75.0-100.0); BG SAMPLE SITE RIGHT RADIAL; BG TOTAL HEMOGLOBIN 10.1 g/dL (12.0-18.0); BG VENT MODE VENT - AC
[2022-03-10] MEDS: PROPOFOL 10MG/ML 100ML 100 ML IV PRN (23:58)
[2022-03-11] VITALS (94 sets, daily range): BP systolic 97–127; BP diastolic 51–80
[2022-03-11] MEDS: FENTANYL 2500MCG/250ML PMX 250 ML IV PRN ×2 (00:56→17:54)
[2022-03-11] MEDS: IPRATROPIUM/ALBUTEROL 0.5-3(2.5)MG/3ML NEB HHN SCH ×4 (02:09→20:21)
[2022-03-11] MEDS: SODIUM CHLORIDE 0.9% IV SCH ×2 (02:44→14:32)
[2022-03-11] MEDS: VALPROATE SODIUM IV SCH ×2 (02:44→14:32)
[2022-03-11] MEDS: PROPOFOL 10MG/ML 100ML 100 ML IV PRN ×4 (04:00→23:32)
[2022-03-11] MEDS: DEXT 5%/0.45% NACL 500ML 1,000 ML IV SCH ×2 (04:10→20:50)
[2022-03-11] MEDS: METHYLPREDNISOLONE SOD SUCC 40 MG/ML VIAL IV SCH ×3 (05:12→21:00)
[2022-03-11] MEDS: METOCLOPRAMIDE HCL 10MG/2ML VIAL IV SCH ×4 (05:12→23:30)
[2022-03-11] MEDS: MEROPENEM 1,000 MG in SODIUM CHLORIDE 0.9% 100 ML IV SCH ×3 (05:13→21:00)
[2022-03-11 05:49] LABS: HEMATOCRIT. 23.2 % (36.0-48.0); HEMOGLOBIN. 7.9 g/dL (12.0-16.0); MEAN CORPUSCULAR HEMOGLOBIN 29.2 pg (28.0-32.0); MEAN CORPUSCULAR VOLUME 85.6 fL (81.0-99.0); MEAN PLATELET VOLUME 7.2 fl (7.4-10.4); PLATELET 308 x1000/uL (130-400); RED BLOOD CELL COUNT 2.71 mill/uL (4.2-5.4); RED CELL DISTRIBUTION WIDTH 12.7 % (11.6-14.6)
[2022-03-11 05:56] LABS: CHLORIDE 108 mEq/L (98-107)
[2022-03-11] MEDS: FAMOTIDINE 20MG/2ML VIAL IV SCH ×2 (08:33→21:00)
[2022-03-11] MEDS: CARBAMAZEPINE 200MG/10ML UDC GT SCH ×2 (08:33→17:07)
[2022-03-11] MEDS: RISPERIDONE 0.5MG TABLET PO SCH ×2 (08:33→17:08)
[2022-03-11] MEDS: ENOXAPARIN 40MG/0.4ML SYR SUBCUT SCH (08:34)
[2022-03-11 09:28] LABS: BG BASE EXCESS -2.1 mmol/L (-2.0-2.0); BG CARBOXYHEMOGLOBIN 0.1 % (0.5-1.5); BG DEOXYHEMOGLOBIN 0.3 % (0.0-5.0); BG FRACTION INSPIRED OXYGEN 100; BG HCO3 ACT 22.6 mmol/L (22.0-26.0); BG METHEMOGLOBIN 0.3 % (0.0-1.5); BG OXYGEN SATURATION 99.7 % (92.0-98.5); BG OXYHEMOGLOBIN 99.3 % (94.0-97.0); BG PCO2 38.3 mmHg (35.0-45.0); BG PH 7.389 (7.350-7.450); BG SAMPLE SITE RIGHT RADIAL; BG TOTAL HEMOGLOBIN 8.9 g/dL (12.0-18.0); BG VENT MODE VENT - AC
[2022-03-11 10:16] LABS: PLATELET ESTIMATE NORMAL
[2022-03-11] MEDS: DILTIAZEM 125MG/125ML PMX 100 ML IV PRN (12:13)
[2022-03-12] VITALS (97 sets, daily range): BP systolic 92–134; BP diastolic 44–86
[2022-03-12] MEDS: IPRATROPIUM/ALBUTEROL 0.5-3(2.5)MG/3ML NEB HHN SCH ×3 (02:14→20:37)
[2022-03-12] MEDS: SODIUM CHLORIDE 0.9% IV SCH ×2 (02:45→13:03)
[2022-03-12] MEDS: VALPROATE SODIUM IV SCH ×2 (02:45→13:03)
[2022-03-12] MEDS: DILTIAZEM 125MG/125ML PMX 100 ML IV PRN (04:27)
[2022-03-12] MEDS: PROPOFOL 10MG/ML 100ML 100 ML IV PRN ×3 (04:28→17:59)
[2022-03-12] MEDS: MEROPENEM 1,000 MG in SODIUM CHLORIDE 0.9% 100 ML IV SCH ×3 (05:00→20:46)
[2022-03-12] MEDS: METHYLPREDNISOLONE SOD SUCC 40 MG/ML VIAL IV SCH ×2 (05:23→12:28)
[2022-03-12] MEDS: METOCLOPRAMIDE HCL 10MG/2ML VIAL IV SCH ×3 (05:23→17:01)
[2022-03-12] MEDS: FENTANYL 2500MCG/250ML PMX 250 ML IV PRN ×2 (05:25→20:47)
[2022-03-12 05:51] LABS: BASOPHILS % 0.1 % (0.0-2.0); HEMATOCRIT. 23.7 % (36.0-48.0); HEMOGLOBIN. 7.9 g/dL (12.0-16.0); LYMPHOCYTES % 7.4 % (20.0-50.0); MEAN CORPUSCULAR VOLUME 86.3 fL (81.0-99.0); MEAN PLATELET VOLUME 7.3 fl (7.4-10.4); MONOCYTES % 7.1 % (2.0-8.0); NEUTROPHILS % 85.4 % (40.0-76.0); PLATELET 347 x1000/uL (130-400); RED BLOOD CELL COUNT 2.74 mill/uL (4.2-5.4); RED CELL DISTRIBUTION WIDTH 13.1 % (11.6-14.6)
[2022-03-12 06:07] LABS: CHLORIDE 110 mEq/L (98-107)
[2022-03-12 08:14] LABS: BG BASE EXCESS 1.4 mmol/L (-2.0-2.0); BG CARBOXYHEMOGLOBIN 0.3 % (0.5-1.5); BG DEOXYHEMOGLOBIN 5.9 % (0.0-5.0); BG FRACTION INSPIRED OXYGEN 40; BG HCO3 ACT 25.4 mmol/L (22.0-26.0); BG METHEMOGLOBIN 0.6 % (0.0-1.5); BG OXYHEMOGLOBIN 93.2 % (94.0-97.0); BG PCO2 37.5 mmHg (35.0-45.0); BG PH 7.449 (7.350-7.450); BG PO2 73.8 mmHg (75.0-100.0); BG SAMPLE SITE RIGHT RADIAL; BG TOTAL HEMOGLOBIN 8.2 g/dL (12.0-18.0); BG VENT MODE VENT - AC
[2022-03-12] MEDS: ENOXAPARIN 40MG/0.4ML SYR SUBCUT SCH (08:55)
[2022-03-12] MEDS: FAMOTIDINE 20MG/2ML VIAL IV SCH ×2 (08:55→20:46)
[2022-03-12] MEDS: RISPERIDONE 0.5MG TABLET PO SCH ×2 (08:55→17:00)
[2022-03-12] MEDS: CARBAMAZEPINE 200MG/10ML UDC GT SCH ×2 (08:55→17:00)
[2022-03-12] MEDS: DILTIAZEM HCL 30MG TABLET PO SCH (12:44)
[2022-03-12 13:02] LABS: HEMATOCRIT 25.3 % (36.0-48.0); HEMOGLOBIN 8.4 g/dL (12.0-16.0)
[2022-03-12] MEDS: DEXT 5%/0.45% NACL 1000ML 1,000 ML IV SCH (17:27)
[2022-03-13] VITALS (68 sets, daily range): BP systolic 95–133; BP diastolic 48–80
[2022-03-13] MEDS: IPRATROPIUM/ALBUTEROL 0.5-3(2.5)MG/3ML NEB HHN SCH ×4 (00:18→21:31)
[2022-03-13] MEDS: METHYLPREDNISOLONE SOD SUCC 40 MG/ML VIAL IV SCH ×2 (00:19→12:10)
[2022-03-13] MEDS: DILTIAZEM 125MG/125ML PMX 100 ML IV PRN (00:19)
[2022-03-13] MEDS: METOCLOPRAMIDE HCL 10MG/2ML VIAL IV SCH ×4 (00:19→17:34)
[2022-03-13] MEDS: PROPOFOL 10MG/ML 100ML 100 ML IV PRN ×2 (00:21→05:38)
[2022-03-13] MEDS: DILTIAZEM HCL 30MG TABLET PO SCH ×2 (00:21→05:04)
[2022-03-13] MEDS: VALPROATE SODIUM IV SCH ×2 (02:43→14:00)
[2022-03-13] MEDS: SODIUM CHLORIDE 0.9% IV SCH ×2 (02:43→14:00)
[2022-03-13] MEDS: MEROPENEM 1,000 MG in SODIUM CHLORIDE 0.9% 100 ML IV SCH ×3 (05:04→20:43)
[2022-03-13 05:40] LABS: BASOPHILS % 0.2 % (0.0-2.0); HEMATOCRIT. 24.5 % (36.0-48.0); HEMOGLOBIN. 8.2 g/dL (12.0-16.0); LYMPHOCYTES % 8.7 % (20.0-50.0); MEAN CORPUSCULAR HEMOGLOBIN 29.9 pg (28.0-32.0); MEAN PLATELET VOLUME 7.3 fl (7.4-10.4); MONOCYTES % 5.1 % (2.0-8.0); PLATELET 341 x1000/uL (130-400); RED BLOOD CELL COUNT 2.75 mill/uL (4.2-5.4); RED CELL DISTRIBUTION WIDTH 13.2 % (11.6-14.6)
[2022-03-13 05:45] LABS: CHLORIDE 108 mEq/L (98-107)
[2022-03-13] MEDS ORDERED: FENTANYL 2500MCG/250ML PMX 250 ML IV PRN (08:00)
[2022-03-13 08:59] LABS: BG BASE EXCESS 2.4 mmol/L (-2.0-2.0); BG CARBOXYHEMOGLOBIN 0.2 % (0.5-1.5); BG DEOXYHEMOGLOBIN 5.1 % (0.0-5.0); BG FRACTION INSPIRED OXYGEN 50; BG HCO3 ACT 26.1 mmol/L (22.0-26.0); BG METHEMOGLOBIN 1.3 % (0.0-1.5); BG OXYGEN SATURATION 94.8 % (92.0-98.5); BG OXYHEMOGLOBIN 93.4 % (94.0-97.0); BG PCO2 36.4 mmHg (35.0-45.0); BG PH 7.473 (7.350-7.450); BG PO2 79.2 mmHg (75.0-100.0); BG SAMPLE SITE LEFT RADIAL; BG TOTAL HEMOGLOBIN 8.2 g/dL (12.0-18.0); BG VENT MODE VENT - AC
[2022-03-13] MEDS: CARBAMAZEPINE 200MG/10ML UDC GT SCH ×2 (09:23→17:23)
[2022-03-13] MEDS: RISPERIDONE 0.5MG TABLET PO SCH ×2 (09:24→17:23)
[2022-03-13] MEDS: ENOXAPARIN 40MG/0.4ML SYR SUBCUT SCH (09:24)
[2022-03-13] MEDS: FAMOTIDINE 20MG/2ML VIAL IV SCH ×2 (09:24→20:43)
[2022-03-13] MEDS: DEXT 5%/0.45% NACL 1000ML 1,000 ML IV SCH ×2 (10:10→21:21)
[2022-03-13 13:50] LABS: BG BASE EXCESS 2.5 mmol/L (-2.0-2.0); BG CARBOXYHEMOGLOBIN 0.3 % (0.5-1.5); BG DEOXYHEMOGLOBIN 7.2 % (0.0-5.0); BG FRACTION INSPIRED OXYGEN 40; BG HCO3 ACT 26.6 mmol/L (22.0-26.0); BG METHEMOGLOBIN 0.3 % (0.0-1.5); BG OXYGEN SATURATION 92.8 % (92.0-98.5); BG OXYHEMOGLOBIN 92.2 % (94.0-97.0); BG PCO2 39.3 mmHg (35.0-45.0); BG PH 7.449 (7.350-7.450); BG PO2 67.6 mmHg (75.0-100.0); BG SAMPLE SITE RIGHT RADIAL; BG TOTAL HEMOGLOBIN 9.2 g/dL (12.0-18.0); BG VENT MODE VENT - CPAP
[2022-03-13] MEDS: FLUCONAZOLE 200 MG/100ML BAG 100 ML IV SCH (14:00)
[2022-03-13] MEDS: DILTIAZEM HCL 60MG TABLET PO SCH ×2 (14:00→21:24)
[2022-03-14] VITALS (39 sets, daily range): BP systolic 103–132; BP diastolic 53–93
[2022-03-14] MEDS: METOCLOPRAMIDE HCL 10MG/2ML VIAL IV SCH ×4 (00:24→18:16)
[2022-03-14] MEDS: METHYLPREDNISOLONE SOD SUCC 40 MG/ML VIAL IV SCH ×2 (01:27→12:12)
[2022-03-14] MEDS: SODIUM CHLORIDE 0.9% IV SCH ×2 (01:28→14:01)
[2022-03-14] MEDS: VALPROATE SODIUM IV SCH ×2 (01:28→14:01)
[2022-03-14] MEDS: IPRATROPIUM/ALBUTEROL 0.5-3(2.5)MG/3ML NEB HHN SCH ×4 (02:12→20:12)
[2022-03-14] MEDS: MEROPENEM 1,000 MG in SODIUM CHLORIDE 0.9% 100 ML IV SCH ×3 (04:56→21:06)
[2022-03-14 05:14] LABS: BASOPHILS % 0.1 % (0.0-2.0); EOSINOPHILS % 0.1 % (0.0-5.0); HEMATOCRIT. 25.5 % (36.0-48.0); HEMOGLOBIN. 8.8 g/dL (12.0-16.0); LYMPHOCYTES % 8.9 % (20.0-50.0); MEAN CORPUSCULAR VOLUME 87.3 fL (81.0-99.0); MEAN PLATELET VOLUME 7.3 fl (7.4-10.4); MONOCYTES % 5.5 % (2.0-8.0); NEUTROPHILS % 85.4 % (40.0-76.0); PLATELET 350 x1000/uL (130-400); RED BLOOD CELL COUNT 2.92 mill/uL (4.2-5.4)
[2022-03-14 05:36] LABS: CHLORIDE 103 mEq/L (98-107)
[2022-03-14] MEDS: DILTIAZEM HCL 60MG TABLET PO SCH ×3 (06:25→22:30)
[2022-03-14] MEDS ORDERED: DOCUSATE SODIUM SUGAR FREE 100MG/10ML UDC GT PRN (08:45)
[2022-03-14] MEDS: CARBAMAZEPINE 200MG/10ML UDC GT SCH ×2 (09:00→16:28)
[2022-03-14 09:12] LABS: BG BASE EXCESS 6.3 mmol/L (-2.0-2.0); BG CARBOXYHEMOGLOBIN 0.1 % (0.5-1.5); BG DEOXYHEMOGLOBIN 3.5 % (0.0-5.0); BG FRACTION INSPIRED OXYGEN 40; BG HCO3 ACT 30.4 mmol/L (22.0-26.0); BG METHEMOGLOBIN 0.2 % (0.0-1.5); BG OXYGEN SATURATION 96.5 % (92.0-98.5); BG OXYHEMOGLOBIN 96.2 % (94.0-97.0); BG PCO2 41.6 mmHg (35.0-45.0); BG PH 7.481 (7.350-7.450); BG PO2 90.4 mmHg (75.0-100.0); BG SAMPLE SITE RIGHT RADIAL; BG TOTAL HEMOGLOBIN 9.9 g/dL (12.0-18.0); BG VENT MODE VENT - CPAP
[2022-03-14] MEDS: RISPERIDONE 0.5MG TABLET PO SCH ×2 (09:25→16:28)
[2022-03-14] MEDS: FAMOTIDINE 20MG/2ML VIAL IV SCH ×2 (09:25→21:06)
[2022-03-14] MEDS: ENOXAPARIN 40MG/0.4ML SYR SUBCUT SCH (09:25)
[2022-03-14] MEDS: FLUCONAZOLE 200 MG/100ML BAG 100 ML IV SCH (14:01)
[2022-03-14] MEDS: LORAZEPAM 2MG/ML CPJ IV PRN (16:28)
[2022-03-14 16:35] LABS: BG CARBOXYHEMOGLOBIN 0.3 % (0.5-1.5); BG DEOXYHEMOGLOBIN 7.7 % (0.0-5.0); BG FRACTION INSPIRED OXYGEN 98; BG HCO3 ACT 30.5 mmol/L (22.0-26.0); BG METHEMOGLOBIN 0.3 % (0.0-1.5); BG OXYGEN SATURATION 92.3 % (92.0-98.5); BG OXYHEMOGLOBIN 91.7 % (94.0-97.0); BG PCO2 39.3 mmHg (35.0-45.0); BG PH 7.508 (7.350-7.450); BG PO2 64.8 mmHg (75.0-100.0); BG SAMPLE SITE LEFT RADIAL; BG TOTAL HEMOGLOBIN 10.4 g/dL (12.0-18.0); BG VENT MODE COOL AEROSOL
[2022-03-14] MEDS: METOPROLOL TARTRATE 25MG TABLET PO SCH (21:07)
[2022-03-14 23:22] LABS: BG BASE EXCESS 3.8 mmol/L (-2.0-2.0); BG CARBOXYHEMOGLOBIN 0.3 % (0.5-1.5); BG DEOXYHEMOGLOBIN 1.6 % (0.0-5.0); BG FRACTION INSPIRED OXYGEN 100; BG HCO3 ACT 26.9 mmol/L (22.0-26.0); BG METHEMOGLOBIN 0.1 % (0.0-1.5); BG OXYGEN SATURATION 98.4 % (92.0-98.5); BG PCO2 34.7 mmHg (35.0-45.0); BG PH 7.507 (7.350-7.450); BG PO2 115.2 mmHg (75.0-100.0); BG SAMPLE SITE LEFT RADIAL; BG TOTAL HEMOGLOBIN 10.5 g/dL (12.0-18.0); BG VENT MODE MASK - BIPAP
[2022-03-15] VITALS (47 sets, daily range): BP systolic 101–146; BP diastolic 38–94
[2022-03-15] MEDS: METHYLPREDNISOLONE SOD SUCC 40 MG/ML VIAL IV SCH ×2 (00:33→12:42)
[2022-03-15] MEDS: METOCLOPRAMIDE HCL 10MG/2ML VIAL IV SCH ×5 (00:33→23:31)
[2022-03-15] MEDS: LORAZEPAM 2MG/ML CPJ IV PRN ×2 (00:48→08:41)
[2022-03-15] MEDS: DEXT 5%/0.45% NACL 1000ML 1,000 ML IV SCH ×2 (01:19→11:48)
[2022-03-15] MEDS: VALPROATE SODIUM IV SCH ×2 (02:11→13:24)
[2022-03-15] MEDS: SODIUM CHLORIDE 0.9% IV SCH ×2 (02:11→13:24)
[2022-03-15] MEDS: IPRATROPIUM/ALBUTEROL 0.5-3(2.5)MG/3ML NEB HHN SCH ×3 (02:13→19:57)
[2022-03-15] MEDS: MEROPENEM 1,000 MG in SODIUM CHLORIDE 0.9% 100 ML IV SCH ×2 (05:18→12:42)
[2022-03-15] MEDS: DILTIAZEM HCL 60MG TABLET PO SCH ×3 (06:17→21:29)
[2022-03-15] MEDS: CARBAMAZEPINE 200MG/10ML UDC GT SCH ×2 (08:40→17:14)
[2022-03-15] MEDS: RISPERIDONE 0.5MG TABLET PO SCH ×2 (08:40→17:14)
[2022-03-15] MEDS: FAMOTIDINE 20MG/2ML VIAL IV SCH ×2 (08:40→21:28)
[2022-03-15] MEDS: METOPROLOL TARTRATE 25MG TABLET PO SCH ×2 (08:40→21:29)
[2022-03-15] MEDS: ENOXAPARIN 40MG/0.4ML SYR SUBCUT SCH (08:41)
[2022-03-15 09:05] LABS: BG BASE EXCESS 5.2 mmol/L (-2.0-2.0); BG CARBOXYHEMOGLOBIN 0.3 % (0.5-1.5); BG DEOXYHEMOGLOBIN 3.6 % (0.0-5.0); BG FRACTION INSPIRED OXYGEN 80; BG HCO3 ACT 28.7 mmol/L (22.0-26.0); BG METHEMOGLOBIN 0.2 % (0.0-1.5); BG OXYGEN SATURATION 96.4 % (92.0-98.5); BG OXYHEMOGLOBIN 95.9 % (94.0-97.0); BG PCO2 38.1 mmHg (35.0-45.0); BG PH 7.495 (7.350-7.450); BG PO2 82.6 mmHg (75.0-100.0); BG SAMPLE SITE RIGHT RADIAL; BG TOTAL HEMOGLOBIN 10.5 g/dL (12.0-18.0); BG VENT MODE MASK - BIPAP
[2022-03-15] MEDS: FLUCONAZOLE 200 MG/100ML BAG 100 ML IV SCH (13:24)
[2022-03-16] VITALS (42 sets, daily range): BP systolic 89–138; BP diastolic 50–85
[2022-03-16] MEDS: VALPROATE SODIUM IV SCH ×2 (01:14→14:03)
[2022-03-16] MEDS: SODIUM CHLORIDE 0.9% IV SCH ×2 (01:14→14:03)
[2022-03-16] MEDS: METHYLPREDNISOLONE SOD SUCC 40 MG/ML VIAL IV SCH ×2 (01:14→12:03)
[2022-03-16] MEDS: IPRATROPIUM/ALBUTEROL 0.5-3(2.5)MG/3ML NEB HHN SCH ×4 (01:49→20:15)
[2022-03-16] MEDS: DEXT 5%/0.45% NACL 1000ML 1,000 ML IV SCH ×2 (04:20→21:30)
[2022-03-16] MEDS: DILTIAZEM HCL 60MG TABLET PO SCH ×3 (05:12→21:13)
[2022-03-16] MEDS: METOCLOPRAMIDE HCL 10MG/2ML VIAL IV SCH ×3 (05:12→17:03)
[2022-03-16 06:47] LABS: CHLORIDE 102 mEq/L (98-107)
[2022-03-16 07:37] LABS: HEMATOCRIT. 27.7 % (36.0-48.0); HEMOGLOBIN. 9.6 g/dL (12.0-16.0); MEAN CORPUSCULAR HEMOGLOBIN 30.7 pg (28.0-32.0); MEAN CORPUSCULAR VOLUME 88.7 fL (81.0-99.0); MEAN PLATELET VOLUME 7.1 fl (7.4-10.4); PLATELET 270 x1000/uL (130-400); RED BLOOD CELL COUNT 3.12 mill/uL (4.2-5.4); RED CELL DISTRIBUTION WIDTH 12.8 % (11.6-14.6)
[2022-03-16] MEDS: CARBAMAZEPINE 200MG/10ML UDC GT SCH ×2 (08:05→17:03)
[2022-03-16] MEDS: FAMOTIDINE 20MG/2ML VIAL IV SCH ×2 (08:06→21:13)
[2022-03-16] MEDS: METOPROLOL TARTRATE 25MG TABLET PO SCH ×2 (08:06→21:14)
[2022-03-16] MEDS: ENOXAPARIN 40MG/0.4ML SYR SUBCUT SCH (08:06)
[2022-03-16] MEDS: RISPERIDONE 0.5MG TABLET PO SCH ×2 (08:06→17:03)
[2022-03-16 09:12] LABS: BG BASE EXCESS 3.7 mmol/L (-2.0-2.0); BG CARBOXYHEMOGLOBIN 0.3 % (0.5-1.5); BG DEOXYHEMOGLOBIN 2.9 % (0.0-5.0); BG FRACTION INSPIRED OXYGEN 80; BG METHEMOGLOBIN 0.1 % (0.0-1.5); BG OXYGEN SATURATION 97.1 % (92.0-98.5); BG OXYHEMOGLOBIN 96.7 % (94.0-97.0); BG PCO2 41.1 mmHg (35.0-45.0); BG PH 7.451 (7.350-7.450); BG PO2 91.8 mmHg (75.0-100.0); BG SAMPLE SITE LEFT RADIAL; BG TOTAL HEMOGLOBIN 10.1 g/dL (12.0-18.0); BG TOTAL RESPIRATORY RATE 29 b/min; BG VENT MODE MASK - BIPAP
[2022-03-16 11:22] LABS: PLATELET ESTIMATE NORMAL
[2022-03-16] MEDS: FLUCONAZOLE 200 MG/100ML BAG 100 ML IV SCH (15:12)
[2022-03-17] VITALS (45 sets, daily range): BP systolic 97–130; BP diastolic 48–94
[2022-03-17] MEDS: IPRATROPIUM/ALBUTEROL 0.5-3(2.5)MG/3ML NEB HHN SCH ×4 (00:20→20:46)
[2022-03-17] MEDS: ACETYLCYSTEINE 100MG/ML 10% VIAL 4ML INH SCH (01:00)
[2022-03-17] MEDS: VALPROATE SODIUM IV SCH ×2 (02:28→13:30)
[2022-03-17] MEDS: SODIUM CHLORIDE 0.9% IV SCH ×2 (02:28→13:30)
[2022-03-17 05:50] LABS: BASOPHILS % 0.1 % (0.0-2.0); EOSINOPHILS % 0.6 % (0.0-5.0); HEMATOCRIT. 28.9 % (36.0-48.0); HEMOGLOBIN. 9.8 g/dL (12.0-16.0); LYMPHOCYTES % 26.8 % (20.0-50.0); MEAN CORPUSCULAR HEMOGLOBIN 29.9 pg (28.0-32.0); MEAN CORPUSCULAR VOLUME 88.5 fL (81.0-99.0); MEAN PLATELET VOLUME 7.1 fl (7.4-10.4); MONOCYTES % 7.6 % (2.0-8.0); NEUTROPHILS % 64.9 % (40.0-76.0); PLATELET 263 x1000/uL (130-400); RED BLOOD CELL COUNT 3.26 mill/uL (4.2-5.4)
[2022-03-17 06:07] LABS: CHLORIDE 101 mEq/L (98-107)
[2022-03-17] MEDS: DILTIAZEM HCL 60MG TABLET PO SCH ×3 (06:26→21:48)
[2022-03-17] MEDS: CARBAMAZEPINE 200MG/10ML UDC GT SCH ×2 (08:02→17:06)
[2022-03-17] MEDS: RISPERIDONE 0.5MG TABLET PO SCH ×2 (08:02→17:06)
[2022-03-17] MEDS: METOPROLOL TARTRATE 25MG TABLET PO SCH ×2 (08:02→21:02)
[2022-03-17] MEDS: FAMOTIDINE 20MG/2ML VIAL IV SCH ×2 (08:02→21:02)
[2022-03-17] MEDS: ENOXAPARIN 40MG/0.4ML SYR SUBCUT SCH (08:03)
[2022-03-17] MEDS: METOCLOPRAMIDE HCL 10MG/2ML VIAL IV SCH ×2 (08:04→17:06)
[2022-03-17] MEDS: METHYLPREDNISOLONE SOD SUCC 40 MG/ML VIAL IV SCH (08:05)
[2022-03-17] MEDS ORDERED: DIGOXIN 500MCG/2ML AMP IV NR (11:00)
[2022-03-17 12:29] LABS: BG BASE EXCESS 4.1 mmol/L (-2.0-2.0); BG CARBOXYHEMOGLOBIN 0.5 % (0.5-1.5); BG FRACTION INSPIRED OXYGEN 98; BG HCO3 ACT 27.9 mmol/L (22.0-26.0); BG METHEMOGLOBIN 0.2 % (0.0-1.5); BG OXYGEN SATURATION 91.9 % (92.0-98.5); BG OXYHEMOGLOBIN 91.3 % (94.0-97.0); BG PCO2 38.4 mmHg (35.0-45.0); BG PH 7.479 (7.350-7.450); BG PO2 63.1 mmHg (75.0-100.0); BG SAMPLE SITE RIGHT RADIAL; BG TOTAL HEMOGLOBIN 8.3 g/dL (12.0-18.0); BG VENT MODE COOL AEROSOL
[2022-03-17] MEDS ORDERED: HYDROCODONE/ACETAMINOPHEN 5/325MG TABLET PO PRN (12:30)
[2022-03-17] MEDS ORDERED: NALOXONE HCL 0.4MG/ML VIAL IV PRN (12:45)
[2022-03-17] MEDS: FLUCONAZOLE 200 MG/100ML BAG 100 ML IV SCH (14:47)
[2022-03-18] VITALS (74 sets, daily range): BP systolic 89–129; BP diastolic 26–93
[2022-03-18] MEDS: IPRATROPIUM/ALBUTEROL 0.5-3(2.5)MG/3ML NEB HHN SCH ×4 (01:00→20:16)
[2022-03-18] MEDS: SODIUM CHLORIDE 0.9% IV SCH ×2 (01:38→13:40)
[2022-03-18] MEDS: VALPROATE SODIUM IV SCH ×2 (01:38→13:40)
[2022-03-18 05:16] LABS: BASOPHILS % 0.1 % (0.0-2.0); EOSINOPHILS % 0.5 % (0.0-5.0); HEMATOCRIT. 29.9 % (36.0-48.0); HEMOGLOBIN. 10.3 g/dL (12.0-16.0); LYMPHOCYTES % 22.2 % (20.0-50.0); MEAN CORPUSCULAR HEMOGLOBIN 30.9 pg (28.0-32.0); MEAN CORPUSCULAR VOLUME 89.9 fL (81.0-99.0); MEAN PLATELET VOLUME 7.1 fl (7.4-10.4); NEUTROPHILS % 70.2 % (40.0-76.0); PLATELET 281 x1000/uL (130-400); RED BLOOD CELL COUNT 3.33 mill/uL (4.2-5.4); RED CELL DISTRIBUTION WIDTH 13.3 % (11.6-14.6)
[2022-03-18 05:20] LABS: CHLORIDE 104 mEq/L (98-107)
[2022-03-18] MEDS: DILTIAZEM HCL 60MG TABLET PO SCH ×3 (05:43→21:32)
[2022-03-18] MEDS: ACETYLCYSTEINE 100MG/ML 10% VIAL 4ML INH SCH ×2 (08:50→13:13)
[2022-03-18] MEDS: CARBAMAZEPINE 200MG/10ML UDC GT SCH ×2 (09:15→16:46)
[2022-03-18] MEDS: RISPERIDONE 0.5MG TABLET PO SCH ×2 (09:15→16:46)
[2022-03-18] MEDS: METOPROLOL TARTRATE 25MG TABLET PO SCH (09:15)
[2022-03-18] MEDS: ENOXAPARIN 40MG/0.4ML SYR SUBCUT SCH (09:15)
[2022-03-18] MEDS: METHYLPREDNISOLONE SOD SUCC 40 MG/ML VIAL IV SCH (09:16)
[2022-03-18] MEDS: FAMOTIDINE 20MG/2ML VIAL IV SCH ×2 (09:16→21:16)
[2022-03-18] MEDS: METOCLOPRAMIDE HCL 10MG/2ML VIAL IV SCH (09:16)
[2022-03-18] MEDS ORDERED: METOPROLOL TARTRATE 25MG TABLET PO NR (11:00)
[2022-03-18 11:41] LABS: BG BASE EXCESS 1.7 mmol/L (-2.0-2.0); BG CARBOXYHEMOGLOBIN 0.3 % (0.5-1.5); BG DEOXYHEMOGLOBIN 4.1 % (0.0-5.0); BG FRACTION INSPIRED OXYGEN 40; BG HCO3 ACT 25.1 mmol/L (22.0-26.0); BG OXYGEN SATURATION 95.9 % (92.0-98.5); BG OXYHEMOGLOBIN 95.6 % (94.0-97.0); BG PH 7.474 (7.350-7.450); BG SAMPLE SITE RIGHT RADIAL; BG TOTAL HEMOGLOBIN 10.1 g/dL (12.0-18.0); BG VENT MODE MASK - BIPAP
[2022-03-18] MEDS: FLUCONAZOLE 200 MG/100ML BAG 100 ML IV SCH (15:41)
[2022-03-18] MEDS: ACETAMINOPHEN 325MG TABLET PO PRN (21:12)
[2022-03-18] MEDS: METOPROLOL TARTRATE 50MG TABLET PO SCH (21:13)
[2022-03-19] VITALS (29 sets, daily range): BP systolic 92–140; BP diastolic 51–82
[2022-03-19] MEDS: ACETYLCYSTEINE 100MG/ML 10% VIAL 4ML INH SCH ×3 (02:38→16:35)
[2022-03-19] MEDS: IPRATROPIUM/ALBUTEROL 0.5-3(2.5)MG/3ML NEB HHN SCH ×4 (02:39→21:40)
[2022-03-19] MEDS: SODIUM CHLORIDE 0.9% IV SCH ×2 (02:58→16:28)
[2022-03-19] MEDS: VALPROATE SODIUM IV SCH ×2 (02:58→16:28)
[2022-03-19 05:24] LABS: BASOPHILS % 0.1 % (0.0-2.0); EOSINOPHILS % 0.2 % (0.0-5.0); HEMATOCRIT. 27.4 % (36.0-48.0); HEMOGLOBIN. 9.4 g/dL (12.0-16.0); LYMPHOCYTES % 30.6 % (20.0-50.0); MEAN CORPUSCULAR HEMOGLOBIN 30.3 pg (28.0-32.0); MEAN CORPUSCULAR VOLUME 88.1 fL (81.0-99.0); MEAN PLATELET VOLUME 7.1 fl (7.4-10.4); MONOCYTES % 8.1 % (2.0-8.0); PLATELET 290 x1000/uL (130-400); RED BLOOD CELL COUNT 3.11 mill/uL (4.2-5.4)
[2022-03-19 05:33] LABS: CHLORIDE 103 mEq/L (98-107)
[2022-03-19] MEDS: DILTIAZEM HCL 60MG TABLET PO SCH ×3 (06:26→22:42)
[2022-03-19] MEDS: FAMOTIDINE 20MG/2ML VIAL IV SCH ×2 (09:06→22:43)
[2022-03-19] MEDS: RISPERIDONE 0.5MG TABLET PO SCH ×2 (09:06→16:28)
[2022-03-19] MEDS: ENOXAPARIN 40MG/0.4ML SYR SUBCUT SCH (09:06)
[2022-03-19] MEDS: METHYLPREDNISOLONE SOD SUCC 40 MG/ML VIAL IV SCH (09:06)
[2022-03-19] MEDS: CARBAMAZEPINE 200MG/10ML UDC GT SCH ×2 (09:06→16:28)
[2022-03-19] MEDS: METOPROLOL TARTRATE 50MG TABLET PO SCH ×2 (09:07→22:43)
[2022-03-20] VITALS: BP 130/62
[2022-03-20] MEDS: ACETYLCYSTEINE 100MG/ML 10% VIAL 4ML INH SCH ×3 (01:22→16:47)
[2022-03-20] MEDS: IPRATROPIUM/ALBUTEROL 0.5-3(2.5)MG/3ML NEB HHN SCH ×4 (01:22→21:05)
[2022-03-20 04:00] VITALS: BP 116/62
[2022-03-20 06:21] LABS: BASOPHILS % 0.4 % (0.0-2.0); EOSINOPHILS % 0.4 % (0.0-5.0); HEMATOCRIT. 30.7 % (36.0-48.0); HEMOGLOBIN. 10.5 g/dL (12.0-16.0); LYMPHOCYTES % 18.2 % (20.0-50.0); MEAN CORPUSCULAR HEMOGLOBIN 29.5 pg (28.0-32.0); MEAN CORPUSCULAR VOLUME 86.2 fL (81.0-99.0); MEAN PLATELET VOLUME 6.7 fl (7.4-10.4); MONOCYTES % 5.8 % (2.0-8.0); NEUTROPHILS % 75.2 % (40.0-76.0); PLATELET 355 x1000/uL (130-400); RED BLOOD CELL COUNT 3.56 mill/uL (4.2-5.4); RED CELL DISTRIBUTION WIDTH 13.5 % (11.6-14.6)
[2022-03-20] MEDS: VALPROATE SODIUM IV SCH ×2 (06:23→13:49)
[2022-03-20] MEDS: SODIUM CHLORIDE 0.9% IV SCH ×2 (06:23→13:49)
[2022-03-20] MEDS: DILTIAZEM HCL 60MG TABLET PO SCH ×3 (06:32→21:47)
[2022-03-20 07:04] LABS: CHLORIDE 103 mEq/L (98-107)
[2022-03-20 08:00] VITALS: BP 125/71
[2022-03-20] MEDS: MULTIVITAMINS,THER W-MINERALS TABLET NG SCH (09:19)
[2022-03-20] MEDS: CARBAMAZEPINE 200MG/10ML UDC GT SCH ×2 (09:20→16:22)
[2022-03-20] MEDS: ACETAMINOPHEN 325MG TABLET PO PRN ×2 (09:20→15:02)
[2022-03-20] MEDS: RISPERIDONE 0.5MG TABLET PO SCH ×2 (09:20→16:22)
[2022-03-20] MEDS: METOPROLOL TARTRATE 50MG TABLET PO SCH ×2 (09:20→20:20)
[2022-03-20] MEDS: FAMOTIDINE 20MG/2ML VIAL IV SCH (09:21)
[2022-03-20] MEDS: METHYLPREDNISOLONE SOD SUCC 40 MG/ML VIAL IV SCH (09:21)
[2022-03-20] MEDS: ENOXAPARIN 40MG/0.4ML SYR SUBCUT SCH (09:22)
[2022-03-20 12:00] VITALS: BP 114/69
[2022-03-20 16:49] VITALS: BP 147/86
[2022-03-20 20:00] VITALS: BP 116/71
[2022-03-20] MEDS: FAMOTIDINE 20MG TABLET PO SCH (20:20)
[2022-03-21] VITALS: BP 120/80
[2022-03-21] MEDS: ACETYLCYSTEINE 100MG/ML 10% VIAL 4ML INH SCH ×3 (01:47→14:24)
[2022-03-21] MEDS: IPRATROPIUM/ALBUTEROL 0.5-3(2.5)MG/3ML NEB HHN SCH ×4 (01:50→21:08)
[2022-03-21] MEDS: VALPROATE SODIUM 250MG/5ML UDC NG SCH ×2 (02:19→14:11)
[2022-03-21 04:00] VITALS: BP 102/56
[2022-03-21] MEDS: DILTIAZEM HCL 60MG TABLET PO SCH ×3 (05:54→21:32)
[2022-03-21 06:52] LABS: BASOPHILS % 0.2 % (0.0-2.0); EOSINOPHILS % 0.7 % (0.0-5.0); HEMATOCRIT. 28.8 % (36.0-48.0); HEMOGLOBIN. 9.6 g/dL (12.0-16.0); LYMPHOCYTES % 28.3 % (20.0-50.0); MEAN CORPUSCULAR HEMOGLOBIN 29.5 pg (28.0-32.0); MEAN CORPUSCULAR VOLUME 88.4 fL (81.0-99.0); MEAN PLATELET VOLUME 7.3 fl (7.4-10.4); MONOCYTES % 6.4 % (2.0-8.0); NEUTROPHILS % 64.4 % (40.0-76.0); PLATELET 293 x1000/uL (130-400); RED BLOOD CELL COUNT 3.26 mill/uL (4.2-5.4); RED CELL DISTRIBUTION WIDTH 13.7 % (11.6-14.6)
[2022-03-21 07:16] LABS: CHLORIDE 101 mEq/L (98-107)
[2022-03-21 08:00] VITALS: BP 103/58
[2022-03-21] MEDS: CARBAMAZEPINE 200MG/10ML UDC GT SCH ×2 (09:11→17:24)
[2022-03-21] MEDS: ENOXAPARIN 40MG/0.4ML SYR SUBCUT SCH (09:11)
[2022-03-21] MEDS: MULTIVITAMINS,THER W-MINERALS TABLET NG SCH (09:11)
[2022-03-21] MEDS: RISPERIDONE 0.5MG TABLET PO SCH ×2 (09:11→17:25)
[2022-03-21] MEDS: METHYLPREDNISOLONE SOD SUCC 40 MG/ML VIAL IV SCH (09:11)
[2022-03-21] MEDS: FAMOTIDINE 20MG TABLET PO SCH ×2 (09:11→21:31)
[2022-03-21] MEDS: METOPROLOL TARTRATE 50MG TABLET PO SCH ×2 (09:11→21:32)
[2022-03-21 12:00] VITALS: BP 119/64
[2022-03-21 16:00] VITALS: BP 112/59
[2022-03-21 20:00] VITALS: BP 111/64
[2022-03-22] VITALS: BP 105/62
[2022-03-22] MEDS: IPRATROPIUM/ALBUTEROL 0.5-3(2.5)MG/3ML NEB HHN SCH ×4 (01:34→20:49)
[2022-03-22] MEDS: ACETYLCYSTEINE 100MG/ML 10% VIAL 4ML INH SCH ×3 (01:35→20:40)
[2022-03-22] MEDS: VALPROATE SODIUM 250MG/5ML UDC NG SCH ×2 (02:55→13:34)
[2022-03-22 04:00] VITALS: BP 125/81
[2022-03-22] MEDS: DILTIAZEM HCL 60MG TABLET PO SCH ×3 (06:12→21:38)
[2022-03-22 08:00] VITALS: BP 134/73
[2022-03-22] MEDS: CARBAMAZEPINE 200MG/10ML UDC GT SCH ×2 (09:41→18:33)
[2022-03-22] MEDS: ENOXAPARIN 40MG/0.4ML SYR SUBCUT SCH (09:42)
[2022-03-22] MEDS: METOPROLOL TARTRATE 50MG TABLET PO SCH ×2 (09:42→21:38)
[2022-03-22] MEDS: FAMOTIDINE 20MG TABLET PO SCH ×2 (09:42→21:38)
[2022-03-22] MEDS: METHYLPREDNISOLONE SOD SUCC 40 MG/ML VIAL IV SCH (09:42)
[2022-03-22] MEDS: MULTIVITAMINS,THER W-MINERALS TABLET NG SCH (09:43)
[2022-03-22] MEDS: RISPERIDONE 0.5MG TABLET PO SCH ×2 (09:43→18:33)
[2022-03-22 12:00] VITALS: BP 107/68
[2022-03-22 16:00] VITALS: BP 111/67
[2022-03-22 20:00] VITALS: BP 103/64
[2022-03-22] MEDS: PANTOPRAZOLE SODIUM 40 MG/VIAL IV SCH (21:38)
[2022-03-23] VITALS: BP 103/59
[2022-03-23] MEDS: IPRATROPIUM/ALBUTEROL 0.5-3(2.5)MG/3ML NEB HHN SCH ×4 (01:02→21:09)
[2022-03-23] MEDS: VALPROATE SODIUM 250MG/5ML UDC NG SCH ×2 (01:36→13:50)
[2022-03-23 03:20] LABS: BASOPHILS % 0.3 % (0.0-2.0); EOSINOPHILS % 1.3 % (0.0-5.0); HEMATOCRIT. 32.8 % (36.0-48.0); HEMOGLOBIN. 10.7 g/dL (12.0-16.0); LYMPHOCYTES % 33.1 % (20.0-50.0); MEAN CORPUSCULAR VOLUME 88.8 fL (81.0-99.0); MEAN PLATELET VOLUME 6.7 fl (7.4-10.4); MONOCYTES % 8.6 % (2.0-8.0); NEUTROPHILS % 56.7 % (40.0-76.0); PLATELET 367 x1000/uL (130-400); RED CELL DISTRIBUTION WIDTH 13.8 % (11.6-14.6)
[2022-03-23 03:49] LABS: INR 1.1; PROTHROMBIN TIME 11.3 sec (9.6-11.0)
[2022-03-23 04:00] VITALS: BP 115/68
[2022-03-23 04:31] LABS: CHLORIDE 102 mEq/L (98-107)
[2022-03-23] MEDS: DILTIAZEM HCL 60MG TABLET PO SCH ×3 (05:49→20:58)
[2022-03-23 08:00] VITALS: BP 108/64
[2022-03-23] MEDS: RISPERIDONE 0.5MG TABLET PO SCH ×2 (09:00→17:45)
[2022-03-23] MEDS: MULTIVITAMINS,THER W-MINERALS TABLET NG SCH (09:00)
[2022-03-23] MEDS: PANTOPRAZOLE SODIUM 40 MG/VIAL IV SCH ×2 (09:00→21:17)
[2022-03-23] MEDS: CARBAMAZEPINE 200MG/10ML UDC GT SCH ×2 (09:00→17:45)
[2022-03-23] MEDS: METHYLPREDNISOLONE SOD SUCC 40 MG/ML VIAL IV SCH (09:00)
[2022-03-23] MEDS: FAMOTIDINE 20MG TABLET PO SCH ×2 (09:00→21:17)
[2022-03-23] MEDS: METOPROLOL TARTRATE 50MG TABLET PO SCH ×2 (10:02→20:57)
[2022-03-23] MEDS ORDERED: CEFAZOLIN 1000MG PREMIX 50 ML IV PRN (12:00)
[2022-03-23] MEDS: ACETAMINOPHEN 325MG TABLET PO PRN (13:51)
[2022-03-23 16:00] VITALS: BP 96/52
[2022-03-23 20:00] VITALS: BP 130/53
[2022-03-24] VITALS: BP 92/44
[2022-03-24] MEDS: IPRATROPIUM/ALBUTEROL 0.5-3(2.5)MG/3ML NEB HHN SCH ×4 (00:39→21:12)
[2022-03-24] MEDS: VALPROATE SODIUM 250MG/5ML UDC NG SCH ×2 (02:28→15:56)
[2022-03-24 04:00] VITALS: BP 97/50
[2022-03-24] MEDS: DILTIAZEM HCL 60MG TABLET PO SCH ×3 (04:45→20:41)
[2022-03-24 07:28] LABS: BASOPHILS % 0.4 % (0.0-2.0); EOSINOPHILS % 1.9 % (0.0-5.0); HEMATOCRIT. 34.5 % (36.0-48.0); HEMOGLOBIN. 11.3 g/dL (12.0-16.0); MEAN CORPUSCULAR VOLUME 88.3 fL (81.0-99.0); MEAN PLATELET VOLUME 6.6 fl (7.4-10.4); MONOCYTES % 8.9 % (2.0-8.0); NEUTROPHILS % 61.8 % (40.0-76.0); PLATELET 323 x1000/uL (130-400)
[2022-03-24 07:41] LABS: CHLORIDE 102 mEq/L (98-107)
[2022-03-24 08:00] VITALS: BP 90/51
[2022-03-24] MEDS: CARBAMAZEPINE 200MG/10ML UDC GT SCH ×2 (08:18→16:19)
[2022-03-24] MEDS: METOPROLOL TARTRATE 50MG TABLET PO SCH ×2 (08:22→20:40)
[2022-03-24] MEDS: FAMOTIDINE 20MG TABLET PO SCH (08:22)
[2022-03-24] MEDS: PANTOPRAZOLE SODIUM 40 MG/VIAL IV SCH ×2 (08:22→21:22)
[2022-03-24] MEDS: RISPERIDONE 0.5MG TABLET PO SCH ×2 (08:22→16:19)
[2022-03-24] MEDS: MULTIVITAMINS,THER W-MINERALS TABLET NG SCH (08:22)
[2022-03-24] MEDS: METHYLPREDNISOLONE SOD SUCC 40 MG/ML VIAL IV SCH (08:22)
[2022-03-24] MEDS: ENOXAPARIN 40MG/0.4ML SYR SUBCUT SCH (08:26)
[2022-03-24 12:00] VITALS: BP 90/53
[2022-03-24 16:00] VITALS: BP 96/52
[2022-03-24 20:00] VITALS: BP 162/77
[2022-03-25] VITALS: BP 94/48
[2022-03-25] MEDS: VALPROATE SODIUM 250MG/5ML UDC NG SCH ×2 (02:27→13:57)
[2022-03-25] MEDS: IPRATROPIUM/ALBUTEROL 0.5-3(2.5)MG/3ML NEB HHN SCH ×3 (03:15→21:33)
[2022-03-25 04:00] VITALS: BP 99/46
[2022-03-25 05:09] LABS: BASOPHILS % 0.4 % (0.0-2.0); EOSINOPHILS % 1.4 % (0.0-5.0); HEMATOCRIT. 31.7 % (36.0-48.0); HEMOGLOBIN. 10.5 g/dL (12.0-16.0); LYMPHOCYTES % 22.3 % (20.0-50.0); MEAN CORPUSCULAR HEMOGLOBIN 29.2 pg (28.0-32.0); MEAN CORPUSCULAR VOLUME 88.1 fL (81.0-99.0); MEAN PLATELET VOLUME 6.6 fl (7.4-10.4); NEUTROPHILS % 67.9 % (40.0-76.0); PLATELET 325 x1000/uL (130-400); RED CELL DISTRIBUTION WIDTH 13.9 % (11.6-14.6)
[2022-03-25 05:17] LABS: CHLORIDE 104 mEq/L (98-107)
[2022-03-25 05:18] LABS: INR 1.1; PROTHROMBIN TIME 11.5 sec (9.6-11.0)
[2022-03-25] MEDS: DILTIAZEM HCL 60MG TABLET PO SCH ×3 (05:19→21:13)
[2022-03-25 08:00] VITALS: BP 104/66
[2022-03-25] MEDS: CARBAMAZEPINE 200MG/10ML UDC GT SCH ×2 (08:33→16:22)
[2022-03-25] MEDS: METOPROLOL TARTRATE 50MG TABLET PO SCH ×3 (08:34→21:14)
[2022-03-25] MEDS: MULTIVITAMINS,THER W-MINERALS TABLET NG SCH (08:34)
[2022-03-25] MEDS: METHYLPREDNISOLONE SOD SUCC 40 MG/ML VIAL IV SCH (08:34)
[2022-03-25] MEDS: RISPERIDONE 0.5MG TABLET PO SCH ×2 (08:34→16:22)
[2022-03-25] MEDS: PANTOPRAZOLE SODIUM 40 MG/VIAL IV SCH ×2 (08:34→21:14)
[2022-03-25] MEDS ORDERED: SODIUM CHLORIDE 0.9% 1,000 ML IV STA (11:01)
[2022-03-25] MEDS: SODIUM CHLORIDE 0.9% 1,000 ML IV SCH ×2 (11:15→18:13)
[2022-03-25 12:00] VITALS: BP 100/59
[2022-03-25 16:00] VITALS: BP 99/62
[2022-03-25 20:00] VITALS: BP 114/62
[2022-03-26] VITALS: BP 121/59
[2022-03-26] MEDS: IPRATROPIUM/ALBUTEROL 0.5-3(2.5)MG/3ML NEB HHN SCH ×4 (02:02→21:28)
[2022-03-26] MEDS: VALPROATE SODIUM 250MG/5ML UDC NG SCH ×2 (02:34→14:49)
[2022-03-26] MEDS: SODIUM CHLORIDE 0.9% 1,000 ML IV SCH (02:35)
[2022-03-26 04:00] VITALS: BP 116/68
[2022-03-26] MEDS: DILTIAZEM HCL 60MG TABLET PO SCH ×4 (05:40→22:52)
[2022-03-26 07:31] LABS: INR 1.1; PROTHROMBIN TIME 11.6 sec (9.6-11.0)
[2022-03-26 07:53] LABS: CHLORIDE 110 mEq/L (98-107)
[2022-03-26 08:00] VITALS: BP 113/65
[2022-03-26 08:07] LABS: BASOPHILS % 0.2 % (0.0-2.0); EOSINOPHILS % 1.5 % (0.0-5.0); HEMATOCRIT. 24.7 % (36.0-48.0); LYMPHOCYTES % 24.7 % (20.0-50.0); MEAN CORPUSCULAR HEMOGLOBIN 29.6 pg (28.0-32.0); MEAN CORPUSCULAR VOLUME 89.6 fL (81.0-99.0); MEAN PLATELET VOLUME 6.6 fl (7.4-10.4); MONOCYTES % 7.6 % (2.0-8.0); PLATELET 232 x1000/uL (130-400); RED BLOOD CELL COUNT 2.76 mill/uL (4.2-5.4); RED CELL DISTRIBUTION WIDTH 14.3 % (11.6-14.6)
[2022-03-26 08:20] LABS: HEMOGLOBIN. 8.2 g/dL (12.0-16.0)
[2022-03-26] MEDS: CARBAMAZEPINE 200MG/10ML UDC GT SCH ×2 (09:00→17:00)
[2022-03-26] MEDS: RISPERIDONE 0.5MG TABLET PO SCH ×2 (09:00→17:00)
[2022-03-26] MEDS: MULTIVITAMINS,THER W-MINERALS TABLET NG SCH (09:00)
[2022-03-26] MEDS: ENOXAPARIN 40MG/0.4ML SYR SUBCUT SCH (09:00)
[2022-03-26] MEDS: METOPROLOL TARTRATE 50MG TABLET PO SCH ×3 (09:00→22:52)
[2022-03-26] MEDS: PANTOPRAZOLE SODIUM 40 MG/VIAL IV SCH ×2 (10:03→21:52)
[2022-03-26] MEDS: METHYLPREDNISOLONE SOD SUCC 40 MG/ML VIAL IV SCH (10:03)
[2022-03-26 12:00] VITALS: BP 110/65
[2022-03-26] MEDS ORDERED: PROPOFOL 200MG/20ML VIAL IV ONE (15:59)
[2022-03-26 16:00] VITALS: BP 121/67
[2022-03-26] MEDS ORDERED: ONDANSETRON HCL 4MG/2ML INJ ONE (16:11)
[2022-03-26] MEDS ORDERED: DEXAMETHASONE 4MG/ML 1ML VIAL ONE (16:11)
[2022-03-26 19:11] LABS: HEMATOCRIT 29.2 % (36.0-48.0); HEMOGLOBIN 9.5 g/dL (12.0-16.0)
[2022-03-26 20:00] VITALS: BP 123/73
[2022-03-27] VITALS: BP 122/63
[2022-03-27] MEDS: VALPROATE SODIUM 250MG/5ML UDC NG SCH ×2 (01:58→13:59)
[2022-03-27] MEDS: IPRATROPIUM/ALBUTEROL 0.5-3(2.5)MG/3ML NEB HHN SCH ×4 (02:01→20:47)
[2022-03-27 04:00] VITALS: BP 117/59
[2022-03-27] MEDS: DILTIAZEM HCL 60MG TABLET PO SCH ×3 (07:01→21:48)
[2022-03-27 08:00] VITALS: BP 142/61
[2022-03-27 08:01] LABS: BASOPHILS % 0.2 % (0.0-2.0); EOSINOPHILS % 0.5 % (0.0-5.0); HEMATOCRIT. 29.2 % (36.0-48.0); HEMOGLOBIN. 9.8 g/dL (12.0-16.0); LYMPHOCYTES % 10.2 % (20.0-50.0); MEAN CORPUSCULAR HEMOGLOBIN 29.6 pg (28.0-32.0); MEAN CORPUSCULAR VOLUME 88.7 fL (81.0-99.0); MEAN PLATELET VOLUME 7.2 fl (7.4-10.4); MONOCYTES % 5.6 % (2.0-8.0); NEUTROPHILS % 83.5 % (40.0-76.0); PLATELET 301 x1000/uL (130-400); RED BLOOD CELL COUNT 3.29 mill/uL (4.2-5.4); RED CELL DISTRIBUTION WIDTH 14.8 % (11.6-14.6)
[2022-03-27 08:13] LABS: CHLORIDE 106 mEq/L (98-107)
[2022-03-27] MEDS: CARBAMAZEPINE 200MG/10ML UDC GT SCH ×2 (09:00→18:12)
[2022-03-27] MEDS: ENOXAPARIN 40MG/0.4ML SYR SUBCUT SCH (09:00)
[2022-03-27] MEDS: MULTIVITAMINS,THER W-MINERALS TABLET NG SCH (09:00)
[2022-03-27] MEDS: RISPERIDONE 0.5MG TABLET PO SCH ×2 (09:00→18:13)
[2022-03-27] MEDS: METOPROLOL TARTRATE 50MG TABLET PO SCH ×2 (09:00→20:57)
[2022-03-27] MEDS: PANTOPRAZOLE SODIUM 40 MG/VIAL IV SCH ×2 (09:03→20:56)
[2022-03-27] MEDS: METHYLPREDNISOLONE SOD SUCC 40 MG/ML VIAL IV SCH (09:03)
[2022-03-27 12:00] VITALS: BP 118/53
[2022-03-27 16:00] VITALS: BP 110/64
[2022-03-27] MEDS ORDERED: DIGOXIN 250MCG TABLET GT NR ×2 (19:30→21:30)
[2022-03-27 20:00] VITALS: BP 113/69
[2022-03-28] VITALS: BP 103/53
[2022-03-28] MEDS: IPRATROPIUM/ALBUTEROL 0.5-3(2.5)MG/3ML NEB HHN SCH ×4 (00:33→21:19)
[2022-03-28] MEDS: VALPROATE SODIUM 250MG/5ML UDC NG SCH ×2 (03:15→15:00)
[2022-03-28 04:00] VITALS: BP 109/60
[2022-03-28] MEDS: DILTIAZEM HCL 60MG TABLET PO SCH ×3 (05:31→21:03)
[2022-03-28 07:52] VITALS: BP 105/63
[2022-03-28] MEDS: PANTOPRAZOLE SODIUM 40 MG/VIAL IV SCH ×2 (08:29→21:08)
[2022-03-28] MEDS: ENOXAPARIN 40MG/0.4ML SYR SUBCUT SCH (08:29)
[2022-03-28] MEDS: CARBAMAZEPINE 200MG/10ML UDC GT SCH ×2 (08:29→16:17)
[2022-03-28] MEDS: MULTIVITAMINS,THER W-MINERALS TABLET NG SCH (08:29)
[2022-03-28] MEDS: RISPERIDONE 0.5MG TABLET PO SCH ×2 (08:29→16:17)
[2022-03-28] MEDS: METHYLPREDNISOLONE SOD SUCC 40 MG/ML VIAL IV SCH (08:29)
[2022-03-28] MEDS: METOPROLOL TARTRATE 50MG TABLET PO SCH ×2 (08:30→21:00)
[2022-03-28 10:46] LABS: BASOPHILS % 0.1 % (0.0-2.0); EOSINOPHILS % 0.9 % (0.0-5.0); HEMATOCRIT. 25.8 % (36.0-48.0); HEMOGLOBIN. 8.4 g/dL (12.0-16.0); LYMPHOCYTES % 25.4 % (20.0-50.0); MEAN CORPUSCULAR HEMOGLOBIN 29.2 pg (28.0-32.0); MEAN CORPUSCULAR VOLUME 89.8 fL (81.0-99.0); MONOCYTES % 7.6 % (2.0-8.0); PLATELET 257 x1000/uL (130-400); RED BLOOD CELL COUNT 2.87 mill/uL (4.2-5.4); RED CELL DISTRIBUTION WIDTH 14.7 % (11.6-14.6)
[2022-03-28 10:48] LABS: CHLORIDE 106 mEq/L (98-107)
[2022-03-28 12:14] VITALS: BP 103/51
[2022-03-28] MEDS: ACETAMINOPHEN 325MG TABLET PO PRN (12:23)
[2022-03-28 15:51] VITALS: BP 102/54
[2022-03-28 20:00] VITALS: BP 104/80
[2022-03-28] MEDS ORDERED: POTASSIUM CHLORIDE 20MEQ/PACKET GT NR (21:30)
[2022-03-29] VITALS: BP 97/50
[2022-03-29] MEDS: IPRATROPIUM/ALBUTEROL 0.5-3(2.5)MG/3ML NEB HHN SCH ×4 (00:58→20:49)
[2022-03-29] MEDS: VALPROATE SODIUM 250MG/5ML UDC NG SCH ×2 (02:44→13:25)
[2022-03-29 04:00] VITALS: BP 107/44
[2022-03-29] MEDS: DILTIAZEM HCL 60MG TABLET PO SCH ×3 (05:32→21:05)
[2022-03-29 08:00] VITALS: BP 121/72
[2022-03-29] MEDS: PANTOPRAZOLE SODIUM 40 MG/VIAL IV SCH ×2 (09:00→21:10)
[2022-03-29] MEDS: ENOXAPARIN 40MG/0.4ML SYR SUBCUT SCH (09:00)
[2022-03-29] MEDS: RISPERIDONE 0.5MG TABLET PO SCH ×2 (09:00→16:23)
[2022-03-29] MEDS: CARBAMAZEPINE 200MG/10ML UDC GT SCH ×2 (09:00→16:23)
[2022-03-29] MEDS: MULTIVITAMINS,THER W-MINERALS TABLET NG SCH (09:00)
[2022-03-29] MEDS: METOPROLOL TARTRATE 50MG TABLET PO SCH ×2 (09:01→21:00)
[2022-03-29] MEDS: PREDNISONE 20MG TABLET PO SCH (09:01)
[2022-03-29 12:00] VITALS: BP 128/78
[2022-03-29 16:00] VITALS: BP 106/58
[2022-03-29 20:00] VITALS: BP 110/59
[2022-03-30] VITALS: BP 120/61
[2022-03-30] MEDS: IPRATROPIUM/ALBUTEROL 0.5-3(2.5)MG/3ML NEB HHN SCH ×4 (01:49→20:29)
[2022-03-30] MEDS: VALPROATE SODIUM 250MG/5ML UDC NG SCH ×2 (03:13→13:00)
[2022-03-30 04:00] VITALS: BP 127/77
[2022-03-30] MEDS: DILTIAZEM HCL 60MG TABLET PO SCH ×3 (05:14→20:56)
[2022-03-30 08:00] VITALS: BP 108/65
[2022-03-30] MEDS: MULTIVITAMINS,THER W-MINERALS TABLET NG SCH (08:37)
[2022-03-30] MEDS: CARBAMAZEPINE 200MG/10ML UDC GT SCH ×2 (08:37→16:36)
[2022-03-30] MEDS: PREDNISONE 20MG TABLET PO SCH (08:37)
[2022-03-30] MEDS: PANTOPRAZOLE SODIUM 40 MG/VIAL IV SCH ×2 (08:37→21:31)
[2022-03-30] MEDS: METOPROLOL TARTRATE 50MG TABLET PO SCH ×2 (08:39→20:55)
[2022-03-30] MEDS: ENOXAPARIN 40MG/0.4ML SYR SUBCUT SCH (09:33)
[2022-03-30 12:00] VITALS: BP 101/62
[2022-03-30 16:00] VITALS: BP 96/56
[2022-03-30 20:00] VITALS: BP 106/55
[2022-03-31] VITALS (7 sets, daily range): BP systolic 91–118; BP diastolic 53–76
[2022-03-31] MEDS: VALPROATE SODIUM 250MG/5ML UDC NG SCH ×2 (01:18→13:22)
[2022-03-31] MEDS: IPRATROPIUM/ALBUTEROL 0.5-3(2.5)MG/3ML NEB HHN SCH ×4 (01:38→21:11)
[2022-03-31] MEDS: DILTIAZEM HCL 60MG TABLET PO SCH ×3 (05:17→22:00)
[2022-03-31] MEDS: METOPROLOL TARTRATE 50MG TABLET PO SCH ×2 (08:43→20:58)
[2022-03-31] MEDS: MULTIVITAMINS,THER W-MINERALS TABLET NG SCH (10:21)
[2022-03-31] MEDS: PANTOPRAZOLE SODIUM 40 MG/VIAL IV SCH ×2 (10:21→20:58)
[2022-03-31] MEDS: PREDNISONE 20MG TABLET PO SCH (10:21)
[2022-03-31] MEDS: CARBAMAZEPINE 200MG/10ML UDC GT SCH ×2 (10:21→17:22)
[2022-03-31] MEDS: ENOXAPARIN 40MG/0.4ML SYR SUBCUT SCH (10:22)
[2022-04-01] VITALS: BP 115/70
[2022-04-01] MEDS: IPRATROPIUM/ALBUTEROL 0.5-3(2.5)MG/3ML NEB HHN SCH ×4 (01:24→20:21)
[2022-04-01] MEDS: VALPROATE SODIUM 250MG/5ML UDC NG SCH ×2 (02:00→13:30)
[2022-04-01 04:00] VITALS: BP 119/62
[2022-04-01] MEDS: DILTIAZEM HCL 60MG TABLET PO SCH ×3 (05:28→21:08)
[2022-04-01 06:28] LABS: BASOPHILS % 0.1 % (0.0-2.0); HEMOGLOBIN. 9.8 g/dL (12.0-16.0); MEAN CORPUSCULAR HEMOGLOBIN 28.8 pg (28.0-32.0); MEAN PLATELET VOLUME 6.7 fl (7.4-10.4); NEUTROPHILS % 55.9 % (40.0-76.0); PLATELET 369 x1000/uL (130-400); RED BLOOD CELL COUNT 3.41 mill/uL (4.2-5.4); RED CELL DISTRIBUTION WIDTH 14.5 % (11.6-14.6)
[2022-04-01 06:51] LABS: CHLORIDE 103 mEq/L (98-107)
[2022-04-01 08:00] VITALS: BP 117/62
[2022-04-01] MEDS: MULTIVITAMINS,THER W-MINERALS TABLET NG SCH (09:13)
[2022-04-01] MEDS: METOPROLOL TARTRATE 50MG TABLET PO SCH ×2 (09:14→21:08)
[2022-04-01] MEDS: PREDNISONE 20MG TABLET PO SCH (09:15)
[2022-04-01] MEDS: ENOXAPARIN 40MG/0.4ML SYR SUBCUT SCH (09:15)
[2022-04-01] MEDS: CARBAMAZEPINE 200MG/10ML UDC GT SCH ×2 (09:15→16:35)
[2022-04-01] MEDS: PANTOPRAZOLE SODIUM 40 MG/VIAL IV SCH ×2 (09:34→21:07)
[2022-04-01 12:00] VITALS: BP 114/63
[2022-04-01 16:00] VITALS: BP 109/61
[2022-04-01 20:00] VITALS: BP 114/61
[2022-04-02] VITALS: BP 103/55
[2022-04-02] MEDS: IPRATROPIUM/ALBUTEROL 0.5-3(2.5)MG/3ML NEB HHN SCH ×4 (01:05→21:34)
[2022-04-02] MEDS: VALPROATE SODIUM 250MG/5ML UDC NG SCH ×2 (01:34→15:39)
[2022-04-02 04:00] VITALS: BP 109/63
[2022-04-02] MEDS: DILTIAZEM HCL 60MG TABLET PO SCH ×3 (06:00→21:14)
[2022-04-02 08:00] VITALS: BP 115/59
[2022-04-02] MEDS: PANTOPRAZOLE SODIUM 40 MG/VIAL IV SCH ×2 (08:30→21:13)
[2022-04-02] MEDS: CARBAMAZEPINE 200MG/10ML UDC GT SCH ×2 (08:30→17:00)
[2022-04-02] MEDS: PREDNISONE 20MG TABLET PO SCH (08:31)
[2022-04-02] MEDS: METOPROLOL TARTRATE 50MG TABLET PO SCH ×2 (08:31→21:00)
[2022-04-02] MEDS: ENOXAPARIN 40MG/0.4ML SYR SUBCUT SCH (08:32)
[2022-04-02] MEDS: MULTIVITAMINS,THER W-MINERALS TABLET NG SCH (08:35)
[2022-04-02 10:09] LABS: BASOPHILS % 0.4 % (0.0-2.0); HEMATOCRIT. 30.2 % (36.0-48.0); LYMPHOCYTES % 31.1 % (20.0-50.0); MEAN CORPUSCULAR HEMOGLOBIN 29.2 pg (28.0-32.0); MEAN CORPUSCULAR VOLUME 88.5 fL (81.0-99.0); MEAN PLATELET VOLUME 6.7 fl (7.4-10.4); MONOCYTES % 10.4 % (2.0-8.0); NEUTROPHILS % 56.1 % (40.0-76.0); PLATELET 354 x1000/uL (130-400); RED BLOOD CELL COUNT 3.42 mill/uL (4.2-5.4); RED CELL DISTRIBUTION WIDTH 14.5 % (11.6-14.6)
[2022-04-02 10:17] LABS: CHLORIDE 102 mEq/L (98-107)
[2022-04-02 11:30] VITALS: BP 91/41
[2022-04-02 16:01] VITALS: BP 122/73
[2022-04-02 20:00] VITALS: BP 109/49
[2022-04-03] VITALS: BP_SYST 127; BP_SYST 138; BP_DIAS 76; BP_DIAS 77
[2022-04-03] MEDS: VALPROATE SODIUM 250MG/5ML UDC NG SCH ×2 (02:24→13:26)
[2022-04-03] MEDS: IPRATROPIUM/ALBUTEROL 0.5-3(2.5)MG/3ML NEB HHN SCH ×4 (02:51→21:24)
[2022-04-03 04:00] VITALS: BP 111/59
[2022-04-03] MEDS: DILTIAZEM HCL 60MG TABLET PO SCH ×3 (05:19→21:25)
[2022-04-03 08:00] VITALS: BP 107/58
[2022-04-03 08:29] LABS: BASOPHILS % 0.2 % (0.0-2.0); EOSINOPHILS % 1.2 % (0.0-5.0); HEMOGLOBIN. 11.1 g/dL (12.0-16.0); LYMPHOCYTES % 31.3 % (20.0-50.0); MEAN CORPUSCULAR HEMOGLOBIN 28.9 pg (28.0-32.0); MEAN CORPUSCULAR VOLUME 88.4 fL (81.0-99.0); MONOCYTES % 11.4 % (2.0-8.0); NEUTROPHILS % 55.9 % (40.0-76.0); PLATELET 362 x1000/uL (130-400); RED BLOOD CELL COUNT 3.85 mill/uL (4.2-5.4); RED CELL DISTRIBUTION WIDTH 14.9 % (11.6-14.6)
[2022-04-03] MEDS: METOPROLOL TARTRATE 50MG TABLET PO SCH ×2 (08:55→21:25)
[2022-04-03] MEDS: PREDNISONE 20MG TABLET PO SCH (08:56)
[2022-04-03] MEDS: CARBAMAZEPINE 200MG/10ML UDC GT SCH ×2 (08:56→17:08)
[2022-04-03] MEDS: ENOXAPARIN 40MG/0.4ML SYR SUBCUT SCH (08:56)
[2022-04-03] MEDS: MULTIVITAMINS,THER W-MINERALS TABLET NG SCH (08:56)
[2022-04-03] MEDS: PANTOPRAZOLE SODIUM 40 MG/VIAL IV SCH ×2 (08:56→21:25)
[2022-04-03 09:19] LABS: CHLORIDE 102 mEq/L (98-107)
[2022-04-03 12:00] VITALS: BP 110/56
[2022-04-03 16:00] VITALS: BP 110/56
[2022-04-03 20:00] VITALS: BP 113/59
[2022-04-04] VITALS: BP 107/57
[2022-04-04] MEDS: IPRATROPIUM/ALBUTEROL 0.5-3(2.5)MG/3ML NEB HHN SCH ×3 (01:27→13:43)
[2022-04-04] MEDS: VALPROATE SODIUM 250MG/5ML UDC NG SCH ×2 (02:13→13:56)
[2022-04-04 04:00] VITALS: BP 107/60
[2022-04-04] MEDS: DILTIAZEM HCL 60MG TABLET PO SCH ×3 (06:00→21:52)
[2022-04-04 08:00] VITALS: BP_SYST 109; BP_SYST 113; BP_DIAS 50; BP_DIAS 63
[2022-04-04 08:14] LABS: BASOPHILS % 0.3 % (0.0-2.0); EOSINOPHILS % 1.3 % (0.0-5.0); HEMATOCRIT. 32.5 % (36.0-48.0); HEMOGLOBIN. 10.9 g/dL (12.0-16.0); LYMPHOCYTES % 29.6 % (20.0-50.0); MEAN CORPUSCULAR HEMOGLOBIN 29.4 pg (28.0-32.0); MEAN CORPUSCULAR VOLUME 87.9 fL (81.0-99.0); MONOCYTES % 9.6 % (2.0-8.0); NEUTROPHILS % 59.2 % (40.0-76.0); PLATELET 336 x1000/uL (130-400); RED CELL DISTRIBUTION WIDTH 14.3 % (11.6-14.6)
[2022-04-04 08:50] LABS: CHLORIDE 102 mEq/L (98-107)
[2022-04-04] MEDS: PANTOPRAZOLE SODIUM 40 MG/VIAL IV SCH ×2 (09:28→21:55)
[2022-04-04] MEDS: CARBAMAZEPINE 200MG/10ML UDC GT SCH ×2 (09:28→18:05)
[2022-04-04] MEDS: PREDNISONE 20MG TABLET PO SCH (09:28)
[2022-04-04] MEDS: MULTIVITAMINS,THER W-MINERALS TABLET NG SCH (09:28)
[2022-04-04] MEDS: ENOXAPARIN 40MG/0.4ML SYR SUBCUT SCH (09:28)
[2022-04-04] MEDS: METOPROLOL TARTRATE 50MG TABLET PO SCH ×2 (09:29→21:00)
[2022-04-04 12:00] VITALS: BP 109/50
[2022-04-04 16:00] VITALS: BP 110/53
[2022-04-04 20:00] VITALS: BP 120/60
[2022-04-05] VITALS: BP 125/68
[2022-04-05] MEDS: VALPROATE SODIUM 250MG/5ML UDC NG SCH ×2 (01:07→14:36)
[2022-04-05 04:00] VITALS: BP 124/80
[2022-04-05] MEDS: DILTIAZEM HCL 60MG TABLET PO SCH ×3 (05:10→23:16)
[2022-04-05 08:00] VITALS: BP 114/71
[2022-04-05] MEDS: MULTIVITAMINS,THER W-MINERALS TABLET NG SCH (09:17)
[2022-04-05] MEDS: PANTOPRAZOLE SODIUM 40 MG/VIAL IV SCH ×2 (09:18→21:11)
[2022-04-05] MEDS: PREDNISONE 20MG TABLET PO SCH (09:18)
[2022-04-05] MEDS: METOPROLOL TARTRATE 50MG TABLET PO SCH ×2 (09:18→21:11)
[2022-04-05] MEDS: ENOXAPARIN 40MG/0.4ML SYR SUBCUT SCH (09:18)
[2022-04-05] MEDS: CARBAMAZEPINE 200MG/10ML UDC GT SCH ×2 (09:21→16:30)
[2022-04-05 12:00] VITALS: BP 101/58
[2022-04-05 16:00] VITALS: BP 105/52
[2022-04-05 20:00] VITALS: BP 116/63
[2022-04-06] VITALS: BP 110/79
[2022-04-06] MEDS: VALPROATE SODIUM 250MG/5ML UDC NG SCH ×2 (01:23→13:27)
[2022-04-06 04:00] VITALS: BP 118/72
[2022-04-06] MEDS: DILTIAZEM HCL 60MG TABLET PO SCH ×3 (06:00→21:09)
[2022-04-06 08:00] VITALS: BP 109/66
[2022-04-06] MEDS: CARBAMAZEPINE 200MG/10ML UDC GT SCH ×2 (08:55→17:04)
[2022-04-06] MEDS: METOPROLOL TARTRATE 50MG TABLET PO SCH ×2 (08:57→21:09)
[2022-04-06] MEDS: MULTIVITAMINS,THER W-MINERALS TABLET NG SCH (08:58)
[2022-04-06] MEDS: PREDNISONE 20MG TABLET PO SCH (08:58)
[2022-04-06] MEDS: ENOXAPARIN 40MG/0.4ML SYR SUBCUT SCH (08:58)
[2022-04-06] MEDS: PANTOPRAZOLE SODIUM 40 MG/VIAL IV SCH ×2 (09:00→21:08)
[2022-04-06 12:00] VITALS: BP 108/51
[2022-04-06 16:00] VITALS: BP 95/52
[2022-04-06 20:00] VITALS: BP 123/60
[2022-04-07] VITALS: BP 117/70
[2022-04-07] MEDS: VALPROATE SODIUM 250MG/5ML UDC NG SCH ×2 (01:32→15:51)
[2022-04-07 04:00] VITALS: BP 121/71
[2022-04-07] MEDS: DILTIAZEM HCL 60MG TABLET PO SCH ×3 (05:43→21:56)
[2022-04-07 08:00] VITALS: BP 124/53
[2022-04-07] MEDS: CARBAMAZEPINE 200MG/10ML UDC GT SCH ×2 (09:48→17:08)
[2022-04-07] MEDS: PREDNISONE 20MG TABLET PO SCH (09:49)
[2022-04-07] MEDS: METOPROLOL TARTRATE 50MG TABLET PO SCH ×2 (09:49→21:55)
[2022-04-07] MEDS: MULTIVITAMINS,THER W-MINERALS TABLET NG SCH (09:49)
[2022-04-07] MEDS: PANTOPRAZOLE SODIUM 40 MG/VIAL IV SCH ×2 (10:01→21:45)
[2022-04-07 12:00] VITALS: BP 106/57
[2022-04-07 16:00] VITALS: BP 101/76
[2022-04-07] MEDS: ENOXAPARIN 40MG/0.4ML SYR SUBCUT SCH (17:08)
[2022-04-07 20:00] VITALS: BP 115/72
[2022-04-08] VITALS: BP 116/68
[2022-04-08] MEDS: VALPROATE SODIUM 250MG/5ML UDC NG SCH ×2 (03:33→14:56)
[2022-04-08 04:00] VITALS: BP 132/98
[2022-04-08] MEDS: DILTIAZEM HCL 60MG TABLET PO SCH ×3 (05:45→22:00)
[2022-04-08 08:00] VITALS: BP 104/69
[2022-04-08] MEDS: METOPROLOL TARTRATE 50MG TABLET PO SCH ×3 (09:00→22:01)
[2022-04-08] MEDS: PANTOPRAZOLE SODIUM 40 MG/VIAL IV SCH ×2 (09:59→21:59)
[2022-04-08] MEDS: MULTIVITAMINS,THER W-MINERALS TABLET NG SCH (09:59)
[2022-04-08] MEDS: PREDNISONE 20MG TABLET PO SCH (09:59)
[2022-04-08] MEDS: CARBAMAZEPINE 200MG/10ML UDC GT SCH ×2 (10:00→17:47)
[2022-04-08 12:00] VITALS: BP 115/60
[2022-04-08 16:00] VITALS: BP 104/64
[2022-04-08] MEDS: ENOXAPARIN 40MG/0.4ML SYR SUBCUT SCH (17:47)
[2022-04-09] MEDS: VALPROATE SODIUM 250MG/5ML UDC NG SCH ×2 (01:19→13:08)
[2022-04-09 04:00] VITALS: BP 104/69
[2022-04-09] MEDS: DILTIAZEM HCL 60MG TABLET PO SCH ×3 (06:00→21:30)
[2022-04-09 08:00] VITALS: BP 111/79
[2022-04-09] MEDS: CARBAMAZEPINE 200MG/10ML UDC GT SCH ×2 (09:12→17:01)
[2022-04-09] MEDS: METOPROLOL TARTRATE 50MG TABLET PO SCH ×2 (09:13→21:31)
[2022-04-09] MEDS: PREDNISONE 20MG TABLET PO SCH (09:13)
[2022-04-09] MEDS: PANTOPRAZOLE SODIUM 40 MG/VIAL IV SCH ×2 (09:13→21:32)
[2022-04-09] MEDS: MULTIVITAMINS,THER W-MINERALS TABLET NG SCH (09:13)
[2022-04-09] MEDS ORDERED: NALOXONE HCL 0.4MG/ML VIAL IV PRN (10:00)
[2022-04-09] MEDS: HYDROCODONE/ACETAMINOPHEN 5/325MG TABLET PO PRN ×2 (10:22→22:26)
[2022-04-09 10:53] LABS: CLARITY URINE CLOUDY (CLEAR); COLOR URINE DARK YELLOW (YELLOW); KETONES URINE NEGATIVE (NEGATIVE); LEUKOCYTE ESTERASE URINE 3+ (NEGATIVE); NITRITE URINE NEGATIVE (NEGATIVE); OCCULT BLOOD URINE 1+ (NEGATIVE); PH URINE >=9.0 (4.5-8.0); PROTEIN URINE 2+ (NEGATIVE); SPECIFIC GRAVITY URINE 1.017 (1.005-1.030)
[2022-04-09 12:00] VITALS: BP 100/55
[2022-04-09 12:30] LABS: BASOPHILS % 0.3 % (0.0-2.0); EOSINOPHILS % 0.9 % (0.0-5.0); HEMATOCRIT. 30.8 % (36.0-48.0); HEMOGLOBIN. 10.2 g/dL (12.0-16.0); LYMPHOCYTES % 16.5 % (20.0-50.0); MEAN CORPUSCULAR HEMOGLOBIN 29.1 pg (28.0-32.0); MEAN CORPUSCULAR VOLUME 88.1 fL (81.0-99.0); MEAN PLATELET VOLUME 7.1 fl (7.4-10.4); MONOCYTES % 10.7 % (2.0-8.0); NEUTROPHILS % 71.6 % (40.0-76.0); PLATELET 292 x1000/uL (130-400); RED CELL DISTRIBUTION WIDTH 14.6 % (11.6-14.6)
[2022-04-09 12:49] LABS: CHLORIDE 102 mEq/L (98-107)
[2022-04-09] MEDS ORDERED: CEFTRIAXONE 1 G PREMIX 50 ML IV SCH (13:00)
[2022-04-09] MEDS ORDERED: PHENAZOPYRIDINE HCL 100MG TABLET PO NR (14:00)
[2022-04-09] MEDS: CEFTRIAXONE 1,000 MG in DEXTROSE 5% WATER 50 ML IV SCH (14:31)
[2022-04-09 16:00] VITALS: BP 111/64
[2022-04-09] MEDS: ENOXAPARIN 40MG/0.4ML SYR SUBCUT SCH (17:01)
[2022-04-09 20:00] VITALS: BP 112/63
[2022-04-10] VITALS: BP 112/40
[2022-04-10] MEDS: VALPROATE SODIUM 250MG/5ML UDC NG SCH ×2 (01:00→14:12)
[2022-04-10 04:00] VITALS: BP 116/55
[2022-04-10] MEDS: DILTIAZEM HCL 60MG TABLET PO SCH ×2 (06:00→13:30)
[2022-04-10 07:58] VITALS: BP 125/47
[2022-04-10] MEDS: PANTOPRAZOLE SODIUM 40 MG/VIAL IV SCH ×2 (09:36→21:11)
[2022-04-10] MEDS: CARBAMAZEPINE 200MG/10ML UDC GT SCH ×2 (09:36→16:08)
[2022-04-10] MEDS: METOPROLOL TARTRATE 50MG TABLET PO SCH ×2 (09:37→21:11)
[2022-04-10] MEDS: MULTIVITAMINS,THER W-MINERALS TABLET NG SCH (09:37)
[2022-04-10] MEDS: PREDNISONE 20MG TABLET PO SCH (09:37)
[2022-04-10 12:00] VITALS: BP 111/48
[2022-04-10] MEDS: CEFTRIAXONE 1,000 MG in DEXTROSE 5% WATER 50 ML IV SCH (14:12)
[2022-04-10] MEDS ORDERED: LEVO500T90 MT (15:33)
[2022-04-10 16:00] VITALS: BP 111/49
[2022-04-10] MEDS: ENOXAPARIN 40MG/0.4ML SYR SUBCUT SCH (16:09)
[2022-04-10 20:00] VITALS: BP 139/49
[2022-04-11] VITALS: BP 104/61
[2022-04-11] MEDS: VALPROATE SODIUM 250MG/5ML UDC NG SCH ×2 (02:10→13:31)
[2022-04-11 04:00] VITALS: BP 115/73
[2022-04-11 06:42] LABS: BASOPHILS % 0.2 % (0.0-2.0); EOSINOPHILS % 0.9 % (0.0-5.0); HEMATOCRIT. 33.9 % (36.0-48.0); HEMOGLOBIN. 11.3 g/dL (12.0-16.0); LYMPHOCYTES % 40.8 % (20.0-50.0); MEAN CORPUSCULAR HEMOGLOBIN 29.1 pg (28.0-32.0); MEAN CORPUSCULAR VOLUME 87.3 fL (81.0-99.0); MEAN PLATELET VOLUME 7.8 fl (7.4-10.4); MONOCYTES % 13.7 % (2.0-8.0); NEUTROPHILS % 44.4 % (40.0-76.0); PLATELET 291 x1000/uL (130-400); RED BLOOD CELL COUNT 3.88 mill/uL (4.2-5.4); RED CELL DISTRIBUTION WIDTH 14.4 % (11.6-14.6)
[2022-04-11 08:00] VITALS: BP 128/65
[2022-04-11 08:18] LABS: CHLORIDE 101 mEq/L (98-107)
[2022-04-11] MEDS: PREDNISONE 20MG TABLET PO SCH (08:49)
[2022-04-11] MEDS: CARBAMAZEPINE 200MG/10ML UDC GT SCH ×2 (08:49→16:52)
[2022-04-11] MEDS: METOPROLOL TARTRATE 50MG TABLET PO SCH ×2 (08:49→21:00)
[2022-04-11] MEDS: MULTIVITAMINS,THER W-MINERALS TABLET NG SCH (08:49)
[2022-04-11] MEDS: PANTOPRAZOLE SODIUM 40 MG/VIAL IV SCH ×2 (08:49→21:56)
[2022-04-11 12:00] VITALS: BP 108/56
[2022-04-11 16:00] VITALS: BP 107/63
[2022-04-11] MEDS: CEFTRIAXONE 1,000 MG in DEXTROSE 5% WATER 50 ML IV SCH (16:02)
[2022-04-11] MEDS: ENOXAPARIN 40MG/0.4ML SYR SUBCUT SCH (16:52)
[2022-04-11 20:00] VITALS: BP 111/75
[2022-04-12] VITALS: BP 126/74
[2022-04-12] MEDS: VALPROATE SODIUM 250MG/5ML UDC NG SCH ×2 (01:45→14:59)
[2022-04-12 04:00] VITALS: BP 135/72
[2022-04-12 08:00] VITALS: BP 110/57
[2022-04-12] MEDS: PANTOPRAZOLE SODIUM 40 MG/VIAL IV SCH ×2 (09:01→20:47)
[2022-04-12] MEDS: MULTIVITAMINS,THER W-MINERALS TABLET NG SCH (09:01)
[2022-04-12] MEDS: PREDNISONE 20MG TABLET PO SCH (09:01)
[2022-04-12] MEDS: CARBAMAZEPINE 200MG/10ML UDC GT SCH ×2 (09:01→16:47)
[2022-04-12 12:00] VITALS: BP 117/64
[2022-04-12] MEDS: CEFTRIAXONE 1,000 MG in DEXTROSE 5% WATER 50 ML IV SCH (14:59)
[2022-04-12 16:00] VITALS: BP 120/78
[2022-04-12] MEDS: ENOXAPARIN 40MG/0.4ML SYR SUBCUT SCH (16:47)
[2022-04-12 19:35] VITALS: BP 116/69
[2022-04-13] VITALS: BP 124/73
[2022-04-13 04:00] VITALS: BP 120/71
[2022-04-13] MEDS: VALPROATE SODIUM 250MG/5ML UDC NG SCH ×2 (04:08→13:47)
[2022-04-13 08:00] VITALS: BP 110/67
[2022-04-13] MEDS: PANTOPRAZOLE SODIUM 40 MG/VIAL IV SCH (09:06)
[2022-04-13] MEDS: CARBAMAZEPINE 200MG/10ML UDC GT SCH (09:07)
[2022-04-13] MEDS: PREDNISONE 20MG TABLET PO SCH (09:07)
[2022-04-13] MEDS: MULTIVITAMINS,THER W-MINERALS TABLET NG SCH (09:07)
[2022-04-13 09:58] VITALS: BP 110/67
[2022-04-13 12:00] VITALS: BP 112/68
[2022-04-13] MEDS: CEFTRIAXONE 1,000 MG in DEXTROSE 5% WATER 50 ML IV SCH (14:35)
[2022-04-13 16:00] VITALS: BP 101/64
== END 2022-04-13 16:55 | disposition home health service (06) | DRG 208 ==
LOC: ER 18:35 → EDBEDREQ 22:01 → EDBEDREQTM 22:01 → EDBEDREQSVC 22:01 → ENRESERV 23:01 → 7EST 23:11 → EDBEDREQTM 23:16 → EDBEDREQ 23:16 → 7WST 03-01 18:14 → 7EST 03-03 10:04 → 7WST 03-04 17:04 → MICUSO 03-06 23:49 → 7WST 03-19 14:15
PROVIDERS: ADMIT Internal Medicine; ATTEND Internal Medicine
PROC: 5A09457 Assistance with Respiratory Ventilation, 24-96 Consecutive Hours, Continuous Positive Airway Pressure (ICD-10-PCS; 2022-03-07)
PROC: 05HY33Z Insertion of Infusion Device into Upper Vein, Percutaneous Approach (ICD-10-PCS; 2022-03-08)
PROC: B54MZZA Ultrasonography of Right Upper Extremity Veins, Guidance (ICD-10-PCS; 2022-03-08)
PROC: 5A1945Z Respiratory Ventilation, 24-96 Consecutive Hours (ICD-10-PCS; principal; 2022-03-10)
PROC: 0BH17EZ Insertion of Endotracheal Airway into Trachea, Via Natural or Artificial Opening (ICD-10-PCS; 2022-03-10)
PROC: 5A09457 Assistance with Respiratory Ventilation, 24-96 Consecutive Hours, Continuous Positive Airway Pressure (ICD-10-PCS; 2022-03-14)
PROC: 0DH63UZ Insertion of Feeding Device into Stomach, Percutaneous Approach (ICD-10-PCS; 2022-03-26)
PROC: 0DB78ZX Excision of Stomach, Pylorus, Via Natural or Artificial Opening Endoscopic, Diagnostic (ICD-10-PCS; 2022-03-26)
DX: U07.1 COVID-19 (principal); J12.82 Pneumonia due to coronavirus disease 2019; J96.01 Acute respiratory failure with hypoxia; E41 Nutritional marasmus; J69.0 Pneumonitis due to inhalation of food and vomit; B37.1 Pulmonary candidiasis; D68.59 Other primary thrombophilia; G93.40 Encephalopathy, unspecified; N39.0 Urinary tract infection, site not specified; E87.1 Hypo-osmolality and hyponatremia; R65.10 Systemic inflammatory response syndrome (SIRS) of non-infectious origin without acute organ dysfunction; E87.6 Hypokalemia; D72.819 Decreased white blood cell count, unspecified; D72.825 Bandemia; T38.0X5A Adverse effect of glucocorticoids and synthetic analogues, initial encounter; Y92.238 Other place in hospital as the place of occurrence of the external cause; G80.9 Cerebral palsy, unspecified; K29.70 Gastritis, unspecified, without bleeding; D64.9 Anemia, unspecified; R07.9 Chest pain, unspecified; G40.909 Epilepsy, unspecified, not intractable, without status epilepticus; R62.7 Adult failure to thrive; R13.12 Dysphagia, oropharyngeal phase; Z68.22 Body mass index [BMI] 22.0-22.9, adult; Z79.899 Other long term (current) drug therapy; R00.0 Tachycardia, unspecified
CPT/HCPCS: 31500; 36415; 36573; 36600; 71045; 74178; 78580; 80048; 80053; 81003; 82140; 82270; 82375; 82805; 82962; 83605; 83735; 84145; 84478; 84703; 85014; 85018; 85025; 85044; 85379; 86141; 86850; 86900; 87015; 87045; 87070; 87106; 87426; 87427; 87449; 87804; 88305; 88312; 88313; 89055; 92610; 93005; 93970; 94002; 94003; 94640; 94660; 99291; C1725; C1893; C9113; C9803; J0456; J0696; J1100; J1450; J1650; J2060; J2185; J2405; J2543; J2704; J2765; J2920; J3010; J3480; J3490; J7030; J7050; J7060; J7512; J7608; Q9967; A4315

== ENCOUNTER 2022-06-26 20:37 | Inpatient (IN) | payer OTHER, MEDICAID ==
[~2022-06-26] VITALS: Ht 167.6 cm; Wt 49.9 kg
[~2022-06-26 20:37] MED LIST changes: -CARB200T PO; +COR6 PO; +KEPP500 PO; +LACT10SO7 PO
[2022-06-27 00:19] LABS: INR 1.1; PROTHROMBIN TIME 11.4 sec (9.6-11.0)
[2022-06-27 00:23] LABS: BASOPHILS % 0.4 % (0.0-2.0); EOSINOPHILS % 2.8 % (0.0-5.0); HEMATOCRIT. 33.6 % (36.0-48.0); HEMOGLOBIN. 10.7 g/dL (12.0-16.0); LYMPHOCYTES % 30.7 % (20.0-50.0); MEAN CORPUSCULAR HEMOGLOBIN 26.8 pg (28.0-32.0); MEAN CORPUSCULAR VOLUME 84.6 fL (81.0-99.0); MEAN PLATELET VOLUME 7.2 fl (7.4-10.4); MONOCYTES % 6.9 % (2.0-8.0); NEUTROPHILS % 59.2 % (40.0-76.0); PLATELET 390 x1000/uL (130-400); RED BLOOD CELL COUNT 3.98 mill/uL (4.2-5.4); RED CELL DISTRIBUTION WIDTH 15.8 % (11.6-14.6)
[2022-06-27 00:31] LABS: CHLORIDE 112 mEq/L (98-107)
[2022-06-27] MEDS ORDERED: DIATR MEGLU/DIATRIZOATE SOLN 30ML ONE ×2 (01:30→01:31)
[2022-06-27] MEDS ORDERED: DIATR MEGLU/DIATRIZOATE SOLN 120ML ONE (01:37)
[2022-06-27 08:00] VITALS: BP_SYST 123; BP_DIAS 77; BP_DIAS 79
[2022-06-27] MEDS: DEXT 5%/0.45% NACL 1000ML 1,000 ML IV SCH (11:17)
[2022-06-27] MEDS ORDERED: FAMO20TA8 PO (11:56)
[2022-06-27] MEDS ORDERED: APIX5TAB PO (11:56)
[2022-06-27 12:00] VITALS: BP 123/77
[2022-06-27 13:22] VITALS: BP 123/77
[2022-06-27] MEDS ORDERED: LEVETIRACETAM 1,000 MG in SODIUM CHLORIDE 0.9% 100 ML IV SCH (14:00)
[2022-06-27] MEDS: LEVETIRACETAM 1000MG PREMIX 100 ML IV SCH ×2 (14:06→23:48)
[2022-06-27 15:58] VITALS: BP 111/49
[2022-06-27] MEDS: CEFAZOLIN 1000MG PREMIX 50 ML IV NR (19:00)
[2022-06-27 20:00] VITALS: BP 120/74
[2022-06-27] MEDS: LACTULOSE 20G/30ML UDC PO SCH (23:49)
[2022-06-27] MEDS: CARVEDILOL 6.25 MG TABLET PO SCH (23:50)
[2022-06-27] MEDS: FAMOTIDINE 20MG TABLET PO SCH (23:50)
[2022-06-27] MEDS: RISPERIDONE 0.5MG TABLET PO SCH (23:51)
[2022-06-28] VITALS: BP 95/66
[2022-06-28] MEDS: DEXT 5%/0.45% NACL 1000ML 1,000 ML IV SCH (00:05)
[2022-06-28 04:00] VITALS: BP 115/59
[2022-06-28 04:49] LABS: CHLORIDE 113 mEq/L (98-107)
[2022-06-28 04:52] LABS: INR 1.1; PROTHROMBIN TIME 11.9 sec (9.6-11.0)
[2022-06-28 05:25] LABS: BASOPHILS % 0.4 % (0.0-2.0); EOSINOPHILS % 3.8 % (0.0-5.0); HEMATOCRIT. 29.7 % (36.0-48.0); HEMOGLOBIN. 9.5 g/dL (12.0-16.0); LYMPHOCYTES % 38.8 % (20.0-50.0); MEAN CORPUSCULAR VOLUME 84.1 fL (81.0-99.0); MEAN PLATELET VOLUME 7.3 fl (7.4-10.4); MONOCYTES % 9.4 % (2.0-8.0); NEUTROPHILS % 47.6 % (40.0-76.0); PLATELET 368 x1000/uL (130-400); RED BLOOD CELL COUNT 3.53 mill/uL (4.2-5.4); RED CELL DISTRIBUTION WIDTH 15.7 % (11.6-14.6)
[2022-06-28 08:00] VITALS: BP 95/52
[2022-06-28] MEDS: LACTULOSE 20G/30ML UDC PO SCH ×2 (09:00→21:00)
[2022-06-28] MEDS: CARVEDILOL 6.25 MG TABLET PO SCH ×2 (09:00→22:25)
[2022-06-28] MEDS ORDERED: APIXABAN 5 MG TABLET PO SCH (09:00)
[2022-06-28] MEDS: FAMOTIDINE 20MG TABLET PO SCH ×2 (10:15→22:25)
[2022-06-28] MEDS: RISPERIDONE 0.5MG TABLET PO SCH ×2 (10:15→22:26)
[2022-06-28] MEDS: LEVETIRACETAM 1000MG PREMIX 100 ML IV SCH ×2 (10:16→22:18)
[2022-06-28 12:00] VITALS: BP 99/64
[2022-06-28 16:00] VITALS: BP 109/64
[2022-06-28 20:00] VITALS: BP 111/69
[2022-06-28] MEDS: CEFAZOLIN 1000MG PREMIX 50 ML IV NR (22:13)
[2022-06-29] VITALS: BP 101/53
[2022-06-29 04:00] VITALS: BP 97/66
[2022-06-29] MEDS: DEXT 5%/0.45% NACL 1000ML 1,000 ML IV SCH ×2 (06:30→17:20)
[2022-06-29 08:00] VITALS: BP 99/59
[2022-06-29] MEDS: CARVEDILOL 6.25 MG TABLET PO SCH ×2 (09:00→22:15)
[2022-06-29] MEDS: RISPERIDONE 0.5MG TABLET PO SCH ×2 (10:09→22:16)
[2022-06-29] MEDS: FAMOTIDINE 20MG TABLET PO SCH ×2 (10:09→22:15)
[2022-06-29] MEDS: LACTULOSE 20G/30ML UDC PO SCH ×2 (10:09→22:14)
[2022-06-29] MEDS: LEVETIRACETAM 1000MG PREMIX 100 ML IV SCH ×2 (10:09→22:16)
[2022-06-29 12:00] VITALS: BP 109/72
[2022-06-29 16:00] VITALS: BP 100/54
[2022-06-29 20:00] VITALS: BP 103/65
[2022-06-30] VITALS: BP 108/65
[2022-06-30 04:00] VITALS: BP 113/78
[2022-06-30] MEDS: DEXT 5%/0.45% NACL 1000ML 1,000 ML IV SCH (05:22)
[2022-06-30 08:00] VITALS: BP 120/69
[2022-06-30] MEDS: FAMOTIDINE 20MG TABLET PO SCH (09:00)
[2022-06-30] MEDS: LEVETIRACETAM 1000MG PREMIX 100 ML IV SCH (09:00)
[2022-06-30] MEDS: CARVEDILOL 6.25 MG TABLET PO SCH (09:00)
[2022-06-30] MEDS: RISPERIDONE 0.5MG TABLET PO SCH (09:00)
[2022-06-30 11:46] VITALS: BP 138/65
[2022-06-30 12:00] VITALS: BP 133/74
== END 2022-06-30 15:35 | disposition home or self-care (01) | DRG 394 ==
LOC: ER 20:37 → 6EST 06-27 01:24 → EDBEDREQTM 06-27 01:32 → EDBEDREQ 06-27 01:32
PROVIDERS: ADMIT Internal Medicine; ATTEND Internal Medicine
DX: K94.23 Gastrostomy malfunction (principal); E44.1 Mild protein-calorie malnutrition; E87.0 Hyperosmolality and hypernatremia; R13.12 Dysphagia, oropharyngeal phase; D64.9 Anemia, unspecified; E11.9 Type 2 diabetes mellitus without complications; G80.8 Other cerebral palsy; I10 Essential (primary) hypertension; E87.6 Hypokalemia; G40.909 Epilepsy, unspecified, not intractable, without status epilepticus; Z86.711 Personal history of pulmonary embolism; Z86.718 Personal history of other venous thrombosis and embolism; Z87.01 Personal history of pneumonia (recurrent); Z86.16 Personal history of COVID-19; Z79.01 Long term (current) use of anticoagulants
CPT/HCPCS: 36415; 74018; 80053; 85025; 87493; 92610; 99285; A6261; J0690; J1953; J7050; Q9963

== ENCOUNTER 2022-08-05 14:00 | Emergency (ER) | payer OTHER, MEDICAID ==
[~2022-08-05] VITALS: Ht 160 cm; Wt 54.0 kg
[~2022-08-05 14:00] MED LIST changes: +APIX5TAB PO; +FAMO20TA8 PO
[2022-08-05 14:57] LABS: BASOPHILS % 0.3 % (0.0-2.0); CHLORIDE 111 mEq/L (98-107); HEMATOCRIT. 29.3 % (36.0-48.0); HEMOGLOBIN. 9.5 g/dL (12.0-16.0); LYMPHOCYTES % 38.7 % (20.0-50.0); MEAN CORPUSCULAR HEMOGLOBIN 27.6 pg (28.0-32.0); MEAN CORPUSCULAR VOLUME 84.8 fL (81.0-99.0); MEAN PLATELET VOLUME 8.2 fl (7.4-10.4); MONOCYTES % 10.2 % (2.0-8.0); NEUTROPHILS % 48.8 % (40.0-76.0); PLATELET 259 x1000/uL (130-400); RED BLOOD CELL COUNT 3.46 mill/uL (4.2-5.4); RED CELL DISTRIBUTION WIDTH 15.3 % (11.6-14.6)
[2022-08-05] MEDS ORDERED: DIATR MEGLU/DIATRIZOATE SOLN 30ML PEG ONE (15:15)
[2022-08-05] MEDS ORDERED: DIATR MEGLU/DIATRIZOATE SOLN 30ML ONE (17:49)
[2022-08-05 22:34] VITALS: BP 112/47
== END 2022-08-05 22:33 | disposition home or self-care (01) ==
LOC: ER 14:00
DX: K94.29 Other complications of gastrostomy (principal); G51.0 Bell's palsy; G40.909 Epilepsy, unspecified, not intractable, without status epilepticus; I10 Essential (primary) hypertension; Y83.3 Surgical operation with formation of external stoma as the cause of abnormal reaction of the patient, or of later complication, without mention of misadventure at the time of the procedure; Y92.018 Other place in single-family (private) house as the place of occurrence of the external cause
CPT/HCPCS: 36415; 74018; 80053; 85025; 99285; Q9963